=== PATIENT | female | born 1960 | race Caucasian/White ===

== ENCOUNTER 2020-07-07 08:52 | Emergency (ER) | payer BC, SELFPAY ==
[2020-07-07 09:04] VITALS: BP 111/49; PULSE 61; RESP 14; TEMP 36.6; O2SAT 100
--- NOTE | 2020-07-07 10:06 | ED.EYEPROB ---
HPI - Eye Problem General Chief complaint: Eye Problems Stated complaint: Pain in left Eye Time Seen by Provider: 07/07/20 09:55 Source: patient and RN notes reviewed Mode of arrival: ambulatory Limitations: no limitations History of Present Illness HPI Narrative: Patient presents today complaining of a foreign body sensation and burning to the left eye since she woke up this morning. Patient was doing yard work yesterday, but does not know a specific moment that could be the culprit to her symptoms. She did try to flush out her eye and put in some redness eyedrops this morning without relief. She has had a previous corneal abrasion in the left eye and states this feels similar. She does not wear glasses or contacts. Denies any purulent discharge. She does complain of photophobia. MD chief complaint: eye redness and foreign body Related Data Home Medications Medication Instructions Recorded Confirmed albuterol sulfate 90 mcg INHALATION USEASDIRECTD PRN 07/07/20 07/07/20 alprazolam 0.5 mg PO TID 07/07/20 07/07/20 bupropion HCl 300 mg PO DAILY 07/07/20 07/07/20 docusate sodium 100 mg PO DAILY 07/07/20 07/07/20 gabapentin 400 mg PO QID 07/07/20 07/07/20 hydrocodone-acetaminophen 10 tablet PO TID 07/07/20 07/07/20 levothyroxine 25 mcg PO DAILY 07/07/20 07/07/20 orphenadrine citrate 100 mg PO BID 07/07/20 07/07/20 sennosides [senna] 8.6 mg PO DAILY 07/07/20 07/07/20 sertraline 50 mg PO DAILY 07/07/20 07/07/20 Allergies Allergy/AdvReac Type Severity Reaction Status Date / Time cephalexin [From Keflex] Allergy Unknown Verified 07/07/20 09:46 iohexol Allergy Unknown Verified 07/07/20 09:46 [From contrast - CT, X-RAY] Penicillins Allergy Unknown Verified 07/07/20 09:46 Review of Systems Review of Systems: Narrative: CONSTITUTIONAL: Denies body aches, fever, chills, or sweats. EYES: Denies visual changes, or discharge. + Redness, tearing, photophobia, burning, foreign body sensation to the left eye ENT: Denies rhinorrhea, congestion, sore throat, or otalgia. CARDIOVASCULAR: Denies chest pain, palpitations, or edema. RESPIRATORY: Denies cough or dyspnea. GASTROINTESTINAL: Denies abdominal pain, nausea, vomiting, or diarrhea. GENITOURINARY: Denies dysuria or hematuria. SKIN: Denies rash, itching, or wounds. MUSCULOSKELETAL: Denies back pain, joint pain, or myalgia. NEUROLOGIC: Denies headache, numbness, tingling, or weakness. PSYCH: Denies depression or anxiety. [facility] Past Medical History Medical History (Updated 07/07/20 @ 10:18 by Alina Rodriguez, SALES DEVELOPMENT CONSULTANT, ) Anxiety Depression Fibromyalgia Sciatica Spinal stenosis Social History Social History Gender identity (if verbalized by the patient): Female Comments At time of signature, I have reviewed and agree with nursing past medical, surgical, social and family history unless otherwise noted. Please see nursing chart for further information. There is no relevant family history pertinent to the presenting complaint Exam Narrative: Exam Narrative: GENERAL: Well-appearing, well-nourished, and in no acute distress. HEAD: Normocephalic, atraumatic. EYES: EOMI. PERRL. Right eye normal. Injected conjunctiva on the left. Tearing on the left. See procedure note. ENT: Mucous membranes pink and moist. NECK: Normal AROM. CHEST: No respiratory distress. EXTREMITIES: Normal range of motion. No edema. SKIN: Warm, dry, no rash. Capillary refill normal. Normal skin turgor. NEURO: No focal deficits. Alert and oriented x3. Gait steady. PSYCH: Normal affect. No signs of depression or anxiety. Course Vital Signs Vital signs: Vital Signs Temperature 98 F 07/07/20 09:04 Pulse Rate 61 07/07/20 09:04 Respiratory Rate 14 07/07/20 09:04 Blood Pressure 111/49 L 07/07/20 09:04 Pulse Oximetry 100 07/07/20 09:04 Temperature 98 F 07/07/20 09:04 Pulse Rate 61 07/07/20 09:04 Respiratory Rate 14 07/07/20 09:04 Blood Pressure 111/49
== END 2020-07-07 10:18 | disposition home or self-care (01) ==
PROVIDERS: Emergency Provider Nurse Practitioner; PCP Family Medicine
DX: S05.02XA Injury of conjunctiva and corneal abrasion without foreign body, left eye, initial encounter (principal); X58.XXXA Exposure to other specified factors, initial encounter; F41.9 Anxiety disorder, unspecified; F32.9 Major depressive disorder, single episode, unspecified; M79.7 Fibromyalgia; M48.00 Spinal stenosis, site unspecified
CPT/HCPCS: 99213; A9270; G0463

== ENCOUNTER 2024-07-19 14:05 | Emergency (ER) | payer BC, SELFPAY ==
--- NOTE | ~2024-07-19 | XR_ITS ---
XR foot LT min 3V Ordering provider: Albertina Diop APRN History: . fell off treadmill . Comparison: None. FINDINGS: BONES: Oblique fracture in the midshaft of the left fifth metatarsal bone. Postoperative changes seen in the first and second toes. JOINT SPACES: Narrowing of the proximal and distal interphalangeal joints. No tarsal coalition. SOFT TISSUES: Normal. IMPRESSION: Fracture in the midshaft of the fifth metatarsal bone. Polyarticular osteoarthritic changes. Reviewed, dictated and finalized at location A.
[2024-07-19 14:15] VITALS: BP 117/59; PULSE 90; RESP 20; TEMP 36.8; O2SAT 98
--- NOTE | 2024-07-19 14:22 | ED.LOWEXIN ---
HPI - Extremity Injury (Lower) General Chief Complaint: Extremity Injury, Lower Stated Complaint: L Foot Injury Source: patient Mode of arrival: ambulatory Limitations: no limitations History of Present Illness HPI Narrative: 64 y/o female presented for c/o left foot pain bruising, and swelling x2 days. Says she fell off the treadmill yesterday when she was distracted looking at her phone. She then resumed her walk of an additional 2 miles. Took hydrocodone. Has been using a walking boot. Related Data Home Medications ?Medication ?Instructions ?Recorded ?Confirmed ?Last Taken ?Type gabapentin 400 mg capsule 400 mg PO QID 07/07/20 07/07/20 Unknown History hydrocodone 10 mg-acetaminophen 10 tablet PO TID 07/07/20 07/07/20 Unknown History 325 mg tablet levothyroxine 25 mcg tablet 25 mcg PO DAILY 07/07/20 07/07/20 Unknown History sertraline 50 mg tablet 50 mg PO DAILY 07/07/20 07/19/24 Unknown History rosuvastatin 20 mg tablet mg 07/19/24 Unknown History sertraline 100 mg tablet mg 07/19/24 Unknown History Allergies Allergy/AdvReac Type Severity Reaction Status Date / Time cephalexin (From Keflex) Allergy Unknown Verified 07/19/24 14:29 iohexol (From contrast - CT, Allergy Unknown Verified 07/19/24 14:29 X-RAY) Penicillins Allergy Unknown Verified 07/19/24 14:29 Review of Systems Review of Systems: CONSTITUTIONAL: Denies body aches, fever, chills EYES: Denies visual changes ENT: Denies rhinorrhea, congestion CARDIOVASCULAR: Denies chest pain, palpitations, or edema. RESPIRATORY: Denies cough or dyspnea. SKIN: Denies rash, itching, or wounds. MUSCULOSKELETAL: reports left foot pain NEUROLOGIC: Denies headache, numbness, tingling, or weakness. All systems reviewed & are unremarkable except as noted in HPI and below PMFSH Past Medical History Medical History (Updated 07/19/24 @ 15:15 by Albertina Diop APRN) Spinal stenosis Anxiety Depression Sciatica Fibromyalgia Social History Social History Gender identity (if verbalized by the patient): Female Comments At time of signature, I have reviewed and agree with nursing past medical, surgical, social and family history unless otherwise noted. Please see nursing chart for further information. There is no relevant family history pertinent to the presenting complaint Exam Narrative: GENERAL: Well-appearing CHEST: Speaks in full sentences. No respiratory distress. HEART: Regular rate and rhythm. Normal and equal peripheral pulses. EXTREMITIES: Left foot has normal strength and sensation. Slightly decreased range of motion of toes. Swelling and tenderness with palpation throughout the foot and ankle. ecchymosis to dorsal foot, MTPs and mid plantar foot. No open wounds. pulse palpable and equal bilaterally, skin warm, dry, pink. Capillary refill less than 3 seconds. SKIN: Warm, dry, no rash. NEURO: Alert and oriented x3. PSYCH: Normal mood and affect Course Course Emergency Course: Patient is aware of diagnosis, understands and agrees to treatment plan. Anticipatory guidance given. Patient agrees to follow-up as directed and is aware of reasons to seek care at the emergency department. Portions of this record may have been created with voice recognition software Level of Care: Express Care Visit Vital Signs Vital signs: Reviewed MDM - Extremity Injury (Lower) MDM Narrative Medical decision making narrative: Discussed physical exam findings and xray.Pt has walking boot from home and reapplied in clinic. Pt has hydrocodone. Advised supportive measures and signs/symptoms to go to the ER. Pt is appropriate for outpt treatment and f/u with ortho. Differential Diagnosis Differential diagnosis: Likely other (Plantar fasciitis, heel spur, foot strain/sprain, metatarsal fracture, metatarsalgia, blanca's neuroma) Imaging Data Radiologist's impression: Patient: Lisa Winkler : 1960 MR#: [id number] Age: 64 Acct:[id number] Loc: [facility] ADM Date: 07/19/24Attending Dr: OXANA foot LT min 3V Ordering provider: Albertina Diop APRN History: . fell off treadmill . Comparison: None. FINDINGS: BONES: Oblique fracture in the midshaft of the left fifth metatarsal bone. Postoperative changes seen in the first and second toes. JOINT SPACES: Narrowing of the proximal and distal interphalangeal joints. No tarsal coalition. SOFT TISSUES: Normal. IMPRESSION: Fracture in the midshaft of the fifth metatarsal bone. Polyarticular osteoarthritic changes. Discharge Plan Discharge Clinical Impression: Foot fracture, left Patient Disposition: Home Condition: Stable Instructions: Foot Fracture in Adults (ED) Additional Instructions: Continue to wear the walking boot at all times while walking. Rest, limit walking ice and elevate the left foot as often as possible. Motrin 600mg every 8 hours, as needed, for pain (take with food). Tylenol 1000mg every 8 hours (totalling 3000mg of acetaminophen from all sources). Go to the ER immediately for increased pain, tingling/numbness, swelling, redness, etc Follow up with Orthopedic Surgery in 1 day for further evaluation - please call today for an appointment. Patient Language: Croatian Prescriptions: No Action gabapentin 400 mg capsule 400 mg PO QID levothyroxine 25 mcg tablet 25 mcg PO DAILY hydrocodone-acetaminophen 10-325 mg tablet 10 tablet PO TID sertraline 50 mg tablet 50 mg PO DAILY sertraline 100 mg tablet rosuvastatin 20 mg tablet Follow-up/Referrals: Chuy Dumont MD [Physician] - UNKNOWN,DOCTOR [Primary Care Provider] - Stand Alone Forms: Work/School Release IP
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
--- OUTSIDE RECORDS SUMMARY | 2024-07-19 15:23 | XMS_ITS | Data Portability ---
[facility] [address] [place] [address] Care Team Providers Care Title I Teacher Name Role Phone BIENVENIDO AUGUSTIN Mold Changer Unavailable Assessment No assessment recorded. Plan of Treatment Reminders Order Date Submit Date Provider Last Modified By Organization Details Last Modified Time Details Appointments PROC 30 2024 01:30P M Bienvenido Augustin MD Not available Not available Not available Lab bacteria l vaginosi s panel, vaginal 2024 025 [facility], [address] [place] [address], [id number], 07/15/2024 07:12:45 aundrea parapsil osis DNA, genital 2024 025 [facility], [address] [place] [address], [facility] [address], [address], 07/15/2024 07:12:44 urinalys is, dipstick 2024 025 [email or web address] In-Office Order, Internal Use Only DO Not Attach Compendium DO Not Attach Compendium, Do Not Delete/merge, [id number] 07/13/2024 16:53:44 cytology report, thin prep, smear or scraping , cervical or vaginal 2024 025 [facility], [address] [facility], [facility] [address], [address], 07/18/2024 16:22:01 cytology report, thin prep, smear or scraping , cervical or vaginal 2023 024 [facility], [address] [facility], [facility] [address], [place], [address], 04/16/2023 06:22:29 bacteria l vaginosi s + vaginiti s panel, vaginal 2019 020 [facility], [address] [facility], [facility], [place], [address], 12/22/2019 07:11:14 urinalys is, dipstick 2019 020 [email or web address] In-Office Order, Internal Use Only DO Not Attach Compendium DO Not Attach Compendium, Do Not Delete/merge, [id number] 12/19/2019 12:13:16 pap, IG + HPV 2019 [facility], [address] [facility], [facility], [place], [address], 12/22/2019 16:15:27 urinalys is, dipstick 2017 018 [email or web address] In-Office Order, Internal Use Only DO Not Attach Compendium DO Not Attach Compendium, Do Not Delete/merge, [id number] 07/08/2017 11:57:34 Referral pelvic floor therapy referral 2023 024 [facility], [address], [place], [address], 07/29/2023 20:17:35 Procedures None recorded . Surgeries None recorded . Imaging MAMMO, screenin g, digital, bilatera l [email or web address] (Scheduling), [address] [facility], [place], [address], 12/19/2019 12:11:55 US, pelvis, transabd ominal + transvag inal 2019 020 [facility] (Scheduling), [address] [facility], [place], [address], 07/06/2019 13:21:45 MAMMO, screenin g, digital, bilatera l 2017 018 [facility] Not available 07/08/2017 15:30:32 US, pelvis, transabd ominal + transvag inal 2017 018 [facility] Not available 07/08/2017 15:30:32 Medication Orders metronid azole 500 mg tablet 2019 020 [id number], [address] [place], [place], [id number], 04/13/2023 09:20:30 Patient TargetsNo targets recorded. Patient Instructions Encounter Date Encounter Id Patient Instructions Last Modified By Organization Details Last Modified Time 12/19/2019 [id number] mammogram: about this test joann Not available 12/19/2019 12:11:54 bacterial vaginosis: care instructions roge Not available 12/19/2019 12:12:42 04/13/2023 [id number] I personally saw and examined the patient with the resident. I agree with the note and plan as documented. Aimee Benson MD. [facility] [email or web address] Not available 04/13/2023 10:02:57 Reason for Referral Pelvic Floor Therapy Referra l for Urinary incontinence Referring Physician: Rosalinda Duron, Rehabilitation Program Coordinator, Encounter Date: 04/13/2023 Results Created Date Observation Date Name Description Value Unit Range Abnormal Flag Note LastModifiedBy Organization Detail LastModifiedTime 12/19/1912/19/2019 urina lysis , dipst ick Leukocytes Negati ve Not Available In-Office Order Internal Use Only DO Not Attach Compendium DO Not Attach Compendium, Do Not Delete/merge, [id number] 12/19/2019 12:10:24 12/19/1912/19/2019 urina lysis , dipst ick Nitrite negati ve Not Available In-Office Order Internal Use Only DO Not Attach Compendium DO Not Attach Compendium, Do Not Delete/merge, [id number] 12/19/2019 12:10:24 12/19/1912/19/2019 urina lysis , dipst ick Urobilinogen .2 Not Available In-Of fice Order Internal Use Only DO Not Attach Compendium DO Not Attach Compendium, Do Not Delete/merge, [id number] 12/19/2019 12:10:24 12/19/19 20 12/19/2019 urina lysis , dipst ick Protein Negati ve Not Available In-Office Order Internal Use Only DO Not Attach Compendium DO Not Attach Compendium, Do Not Delete/merge, [id number] 12/19/2019 12:10:24 12/19/19 20 12/19/2019 urina lysis , dipst ick pH 5.0 Not Available In-Office Order Internal Use Only DO Not Attach Compendium DO Not Attach Compendium, Do Not Delete/merge, [id number] 12/19/2019 12:10:24 12/19/19 20 12/19/2019 urina lysis , dipst ick Blood Negati ve Not Available In-Office Order Internal Use Only DO Not Attach Compendium DO Not Attach Compendium, Do Not Delete/merge, [id number] 12/19/2019 12:10:24 12/19/19 20 12/19/2019 urina lysis , dipst ick Specific Sunflower 1.010 Not Available In-Off ice Order Internal Use Only DO Not Attach Compendium DO Not Attach Compendium, Do Not Delete/merge, [id number] 12/19/2019 12:10:24 12/19/19 20 12/19/2019 urina lysis , dipst ick Ketone Negati ve Not Available In-Office Order Internal Use Only DO Not Attach Compendium DO Not Attach Compendium, Do Not Delete/merge, [id number] 12/19/2019 12:10:24 12/19/19 20 12/19/2019 urina lysis , dipst ick Bilirubin Negati ve Not Available In-Office Order Internal Use Only DO Not Attach Compendium DO Not Attach Compendium, Do Not Delete/merge, [id number] 12/19/2019 12:10:24 12/19/19 20 12/19/2019 urina lysis , dipst ick Glucose Negati ve Not Available In-Office Order Internal Use Only DO Not Attach Compendium DO Not Attach Compendium, Do Not Delete/merge, [id number] 12/19/2019 12:10:24 12/19/19 20 12/19/2019 urina lysis , dipst ick Appearance Slight ly Cloudy Not Available In-Office Order Internal Use Only DO Not Attach Compendium DO Not Attach Compendium, Do Not Delete/merge, 12/19/2019 12:10:24 12/19/19 20 12/19/2019 urina lysis , dipst ick Color Dark Yellow Not Available In-Office Order Internal Use Only DO Not Attach Compendium DO Not Attach Compendium, Do Not Delete/merge, 12/19/2019 12:10:24 07/09/19 18 07/08/2017 urina lysis , dipst ick Leukocytes Negati ve Not Available In-Office Order Internal Use Only DO Not Attach Compendium DO Not Attach Compendium, Do Not Delete/merge, 07/08/2017 11:25:07 07/09/19 18 07/08/2017 urina lysis , dipst ick Nitrite negati ve Not Available In-Office Order Internal Use Only DO Not Attach Compendium DO Not Attach Compendium, Do Not Delete/merge, 07/08/2017 11:25:07 07/09/19 18 07/08/2017 urina lysis , dipst ick Urobilinogen .2 Not Available In-Of fice Order Internal Use Only DO Not Attach Compendium DO Not Attach Compendium, Do Not Delete/merge, 07/08/2017 11:25:07 07/09/19 18 07/08/2017 urina lysis , dipst ick Protein Negati ve Not Available In-Office Order Internal Use Only DO Not Attach Compendium DO Not Attach Compendium, Do Not Delete/merge, 07/08/2017 11:25:07 07/09/19 18 07/08/2017 urina lysis , dipst ick pH 5.5 Not Available In-Office Order Internal Use Only DO Not Attach Compendium DO Not Attach Compendium, Do Not Delete/merge, 07/08/2017 11:25:07 07/09/19 18 07/08/2017 urina lysis , dipst ick Blood Negati ve Not Available In-Office Order Internal Use Only DO Not Attach Compendium DO Not Attach Compendium, Do Not Delete/merge, 07/08/2017 11:25:07 07/09/19 18 07/08/2017 urina lysis , dipst ick Specific Sunflower 1.005 Not Available In-Off ice Order Internal Use Only DO Not Attach Compendium DO Not Attach Compendium, Do Not Delete/merge, 07/08/2017 11:25:07 07/09/19 18 07/08/2017 urina lysis , dipst ick Ketone Negati ve Not Available In-Office Order Internal Use Only DO Not Attach Compendium DO Not Attach Compendium, Do Not Delete/merge, 07/08/2017 11:25:07 07/09/19 18 07/08/2017 urina lysis , dipst ick Bilirubin Negati ve Not Available In-Office Order Internal Use Only DO Not Attach Compendium DO Not Attach Compendium, Do Not Delete/merge, 07/08/2017 11:25:07 07/09/19 18 07/08/2017 urina lysis , dipst ick Glucose Negati ve Not Available In-Office Order Internal Use Only DO Not Attach Compendium DO Not Attach Compendium, Do Not Delete/merge, 07/08/2017 11:25:07 07/09/19 18 07/08/2017 urina lysis , dipst ick Appearance Slight ly Cloudy Not Available In-Office Order Internal Use Only DO Not Attach Compendium DO Not Attach Compendium, Do Not Delete/merge, 07/08/2017 11:25:07 07/09/19 18 07/08/2017 urina lysis , dipst ick Color Yellow Not Available In-Office Order Internal Use Only DO Not Attach Compendium DO Not Attach Compendium, Do Not Delete/merge, 07/08/2017 11:25:07 12/19/19 20 12/21/2019 bacte rial vagin osis + vagin itis panel , vagin al atopobium vaginae Low - 0 score Not Available [facility] ([facility]) [address] [facility], [place], [address], 12/22/2019 07:11:14 12/19/19 20 12/21/2019 bacte rial vagin osis + vagin itis panel , vagin al bvab 2 Low - 0 score Not Available [facility] ([facility]) [address] [place], [address], 12/22/2019 07:11:14 12/19/19 20 12/21/2019 bacte rial vagin osis + vagin itis panel , vagin al megasphaera 1 Low - 0 score Calcu late total score by daria bolden the 3 indiv idual bacte rial vagin osis (BV) marke r score s toget her. Total score is inter prete d as follo ws: Total score 0-1: Indic ates the absen ce of BV. Total score 2: Indet ermin ate for BV. Addit ional clini otilia data shoul d be evalu ated to estab enrike a diagn osis. Total score 3-6: Indic ates the prese nce of BV. This test was devel oped and its perfo rmanc e azeem cteri stics deter mined by [facility]. It has not been clear ed or appro aurora by the Food and Drug Admin istra tion. The FDA has deter mined that such clear ance or appro marina is not neces abdifatah. Not Available [facility] ([facility]) [address] [facility], [place], [address], 12/22/2019 07:11:14 12/19/19 20 12/21/2019 bacte rial vagin osis + vagin itis panel , vagin al aundrea albicans, DAMIÁN Negati ve negati ve Not Available [facility] ([facility]) [address] [place], [address], 12/22/2019 07:11:14 12/19/19 20 12/21/2019 bacte rial vagin osis + vagin itis panel , vagin al aundrea glabrata, DAMIÁN Negati ve negati ve Not Available [facility] ([facility]) [address] [place], [address], 12/22/2019 07:11:14 12/19/19 20 12/21/2019 bacte rial vagin osis + vagin itis panel , vagin al trich vag by DAMIÁN Negati ve negati ve Not Available [facility] ([facility]) [address] [facility], [place], [address], 12/22/2019 07:11:14 12/19/19 20 12/21/2019 bacte rial vagin osis + vagin itis panel , vagin al chlamydia trachomatis, DAMIÁN Negati ve negati ve Not Available [facility] ([facility]) [address] [facility], [place], [address], 12/22/2019 07:11:14 12/19/19 20 12/21/2019 bacte rial vagin osis + vagin itis panel , vagin al neisseria gonorrhoeae, DAMIÁN Negati ve negati ve Not Available [facility] ([facility]) [address] [facility], [place], [address], 12/22/2019 07:11:14 12/19/19 20 12/21/2019 pap, IG + HPV HPV aptima Negati ve negati ve This nucle ic acid ampli ficat ion test detec ts fourt een high- risk HPV types (16,1 8,31, 33,35 ,39,4 5,51, 52,56 ,58,5 9,66, 68) witho ut diffe renti ation . Not Available [facility] ([facility]) [address] [facility], [place], [address], 12/22/2019 16:15:27 12/19/1912/22/2019 pap, IG + HPV diagnosis: Commen t NEGAT DARRIN FOR INTRA EPITH ELIAL LESIO N OR MALIG MUSA . CELLU LAR EARL ES ASSOC IATED WITH ATROP HY ARE PRESE NT. Not Available [facility] ([facility]) [address] [facility], [place], [address], 12/22/2019 16:15:27 12/19/19 20 12/22/2019 pap, IG + HPV specimen adequacy: Lucia ochoa Satis facto ry for evalu ation . Endoc ervic al and/o r squam ous metap lasti c cells (endo cervi otilia compo nent) are prese nt. Not Available [facility] ([facility]) [address] [place], [address], 12/22/2019 16:15:27 12/19/19 20 12/22/2019 pap, IG + HPV clinician provided ICD10: Lucia ochoa Z01.4 19 Not Available [facility] ([facility]) [address] [place], [address], 12/22/2019 16:15:27 12/19/19 20 12/22/2019 pap, IG + HPV performed by: Gilda Rossi (ASCP ) Not Available [facility] ([facility]) [address] [facility], [place], [address], 12/22/2019 16:15:27 12/19/19 20 12/22/2019 pap, IG + HPV . . Not Available [facility] ([facility]) [address] [facility], [place], [address], 12/22/2019 16:15:27 12/19/19 20 12/22/2019 pap, IG + HPV note: Lucia ochoa The Pap smear is a scree demian test desig fede to aid in the detec tion of jaky ligna nt and malig nant condi tions of the uteri ne cervi x. It is not a diagn ostic proce dure and shoul d not be used as the sole means of detec ting cervi otilia cance r. Both false -posi tive and false -nega tive repor ts do occur . Not Available [facility] ([facility]) [address] [place], [address], 12/22/2019 16:15:27 1112/22/2019 pap, IG + HPV test methodology: Lucia ochoa This liqui d based ThinP rep(R ) pap test was cooper mistry with the use of an image guide ronit dumont Not Available [facility] ([facility]) [address] [facility], [place], [address], 12/22/2019 16:15:27 04/13/19 24 04/15/2023 IGP, APTIM A HPV, RFX 16/18 ,45 diagnosis: Lucia BROWN DARRIN FOR INTRA EPITH ELIAL LESIO N OR KANWAL VIGIL . Not Available [facility] ([facility]) [address] [facility], [place], [address], 04/16/2023 06:22:29 04/13/19 24 04/15/2023 IGP, APTIM A HPV, RFX 16/18 ,45 specimen adequacy: Lucia ochoa Satis facto ry for evalu ation . Endoc ervic al and/o r squam ous metap lasti c cells (endo cervi otilia compo nent) are prese nt. Not Available [facility] ([facility]) [address] [facility], [place], [address], 04/16/2023 06:22:29 04/13/19 24 04/15/2023 IGP, APTIM A HPV, RFX 16/18 ,45 clinician provided ICD10: Lucia ochoa Z12.4 Not Available [facility] ([facility]) [address] [facility], [place], [address], 04/16/2023 06:22:29 04/13/19 24 04/15/2023 IGP, APTIM A HPV, RFX 16/18 ,45 performed by: Gilda Villaseñor (ASCP ) Not Available [facility] ([facility]) [address] [place], [address], 04/16/2023 06:22:29 04/13/19 24 04/15/2023 IGP, APTIM A HPV, RFX 16/18 ,45 . . Not Available [facility] ([facility]) [address] [place], [address], 04/16/2023 06:22:29 04/13/19 24 04/15/2023 IGP, APTIM A HPV, RFX 16/18 ,45 note: Commen t The Pap smear is a scree demian test brandee mistry to aid in the detec tion of jaky ligna nt and malig nant condi tions of the uteri ne cervi x. It is not a diagn ostic proce dure and shoul d not be used as the sole means of detec ting cervi otilia cance r. Both false -posi tive and false -nega tive repor ts do occur . Not Available [facility] ([facility]) [address] [place], [address], 04/16/2023 06:22:29 04/13/19 24 04/15/2023 IGP, APTIM A HPV, RFX 16/18 ,45 test methodology: Commen t This liqui d based ThinP rep(R ) pap test was scree fede with the use of an image guide ronit mcghee. Not Available [facility] ([facility]) [address] [place], [address], 04/16/2023 06:22:29 04/13/19 24 04/15/2023 IGP, APTIM A HPV, RFX 16/18 ,45 HPV aptima Positi ve negati ve abnormal This nucle ic acid ampli ficat ion test detec ts fourt een high- risk HPV types (16,1 8,31, 33,35 ,39,4 5,51, 52,56 ,58,5 9,66, 68) witho ut diffe renti ation . Not Available [facility] ([facility]) [address] [place], [address], 04/16/2023 06:22:29 04/13/19 24 04/15/2023 IGP, APTIM A HPV, RFX 16/18 ,45 HPV genotype reflex Commen t Crite siria met, see HPV Genot ype resul ts. Not Available [facility] ([facility]) [address] [facility], [place], [address], 04/16/2023 06:22:29 04/13/19 24 04/16/2023 HPV GENOT YPES 16/18 ,45 HPV genotype 16 Negati ve negati ve Not Available [facility] ([facility]) [address] [facility], [place], [address], 04/16/2023 06:22:30 04/13/19 24 04/16/2023 HPV GENOT YPES 16/18 ,45 HPV genotype 18,45 Negati ve negati ve Not Available [facility] ([facility]) [address] [facility], [place], [address], 04/16/2023 06:22:30 07/02/19 25 07/01/2024 25-Hy droxy vitam in D3+25 -Hydr oxyvi tamin D2 [Mass /volu me] in Serum or Plasm a 25-hydroxyvi tamin D3+25-hydrox yvitamin D2 [mass/volume ] in serum or plasma 22.1 NG/mL Not Available Not Available 10:30:20 07/02/19 25 07/01/2024 25-Hy droxy vitam in D3+25 -Hydr oxyvi tamin D2 [Mass /volu me] in Serum or Plasm a Unknown Analyte Publis hed refere nce ranges for Vitami n D vary depend ing on time and place and method of testin g, and on patien t's age, sex, ethnic ity and levels of other measur ed analyt es such as parath ormone , calciu m and phosph orus. The result should be evalua edda in conjun ction with clinic al findin gs and suspic ions. [facility] Guidel mary: Status Vitami n D levels (ng/mL ) Defici ent <=20 At risk of inadeq uacy 21-29 Suffic ient 30-100 Center s of Diseas e Contro l and Preven tion Guidel mary: Status Vitami n D levels (ng/mL ) Defici ent <13 At risk of inadeq uacy 13-19 Suffic ient 20-50 Possib ly harmfu l >50 Refere nces: [facility], 2009 Dietar y refere nce intake s for calciu m and vitami n D. Shirley weston [place]: [facility] ies Press. Hamlet Mcghee, Savage diop N, Vinnie ff-Slade ashutosh BURTON, et al., Evalua tion, treatm ent, and preven tion of Vitami n D defici ency: an Endocr inolog y Clinic al Practi ce Guidel ine. JCEM 2011 96: 7 1911-1 [phone]. Gary Chavez, Elisa stone C, Ibrahima D, et al., Vitami n D Status : [facility] , 2000-02 006, [facility] data brief, no. 59, Bradley robertson MD: [facility] Stat[facility] tics. 2010. Not Available Not Available 10:30:20 07/02/1907/01/2024 HIV 1+2 Ab+HI V1 p24 Ag [Pres ence] in Serum or Plasm a by Immun oassa y HIV 1+2 Ab+HIV1 P24 Ag [units/volum e] in serum or plasma by immunoassay NON DETECT ED text: non detect ed Not Available Not Available 07/12/2024 10:30:20 07/02/1907/01/2024 HIV 1+2 Ab+HI V1 p24 Ag [Pres ence] in Serum or Plasm a by Immun oassa y interpretati on and review of laboratory results Normal Not Available Not Available 04/2024 10:30:20 07/02/19 25 07/03/2024 Mycob acter ium tuber culos is stimu lated gamma inter feron panel - Blood gamma interferon background [units/volum e] in blood by immunoassay 0.01 text: <8.01 IU/mL Not Available Not Available 07/12/2024 10:30:20 07/02/19 25 07/03/2024 Mycob acter ium tuber reneeos is stimu lated gamma inter feron panel - Blood mycobacteriu m tuberculosis stimulated gamma interferon release by cd4+ T-cells [units/volum e] in blood 0.02 text: <0.35 IU/mL Not Available Not Available 07/12/2024 10:30:20 07/02/19 25 07/03/2024 Mycob acter ium tuber culos is stimu lated gamma inter feron panel - Blood mycobacteriu m tuberculosis stimulated gamma interferon release by cd4+ and cd8+ T-cells [units/volum e] in blood 0.01 text: <0.35 IU/mL Not Available Not Available 07/12/2024 10:30:20 07/02/19 25 07/03/2024 Mycob acter ium tuber culos is stimu lated gamma inter feron panel - Blood mycobacteriu m tuberculosis tuberculin stimulated gamma interferon/m itogen stimulated gamma interferon [units/volum e] in control blood 9.99 text: >0.49 IU/mL Not Available Not Available 07/12/2024 10:30:20 07/02/19 25 07/03/2024 Mycob acter ium tuber reneeos is stimu lated gamma inter feron panel - Blood mycobacteriu m tuberculosis stimulated gamma interferon [interpretat ion] in blood qualitative NEGATI VE text: negati ve, negati ve (TB antige n respon se less than 25% of design engineering intern al negati ve contro l value) No immun e respo nse to Mycob acter ium tuber reneeos is antig ens was noted . M. lainey duranos is infec tion unlik brian. Not Available Not Available 07/12/2024 10:30:20 07/02/19 25 07/03/2024 Mycob acter ium lainey duranos is stimu lated gamma inter feron panel - Blood Unknown Analyte A POSITI VE QUANTI FERON- TB GOLD PLUS RESULT SHOULD NOT BE THE SOLE OR DEFINI TIVE BASIS FOR DETERM INING INFECT ION WITH M.TUBE RCULOS IS. Diagno sing or exclud ing tuberc ulosis diseas e, and assess ing the probab ility of LTBI, requir es a combin ation of epidem iologi otilia, histor ical, medica l and diagno stic findin gs (e.g., acid fast bacill i (AFB) smear and cultur e, chest xray) that should be taken into accoun t when interp reting QFT-Pl us result s. Furthe rmore, the magnit ude of the measur ed gamma interf alex level cannot be correl ated to stage or degree of infect ion, level of immune respon sivene ss, or likeli nunn for progre ssion to active diseas e. The Nil contro l adjust s for backgr ound (e.g., elevat ed levels of circul ating gamma interf alex or presen ce of hetero phile antibo dies). The Mitoge n contro l serves as an design engineering intern al positi ve contro l and verifi es each specim en tested can produc e a gamma interf alex respon se. Low mitoge n may occur with insuff icient lympho cytes, reduce d lympho cyte activi ty due to improp er specim en handli ng, fillin g/mixi ng of the mitoge n tube, or inabil ity of the patien t's lympho cytes to genera te gamma interf alex. Infect ion with other Mycoba cteria , includ ing M. [place] ii, M. gus i, and M. rae m, may cause false positi ve result s. A negati ve Quanti FERON- TB Gold Plus result does not preclu de the possib ility of M. tuberc ulosis infect ion or tuberc ulosis diseas e: false negati ve result s can be due to incorr ect blood sample collec tion/ improp er handli ng of the specim en, stage of infect ion (e.g., specim en obtain ed prior to the develo pment of cellul ar immune respon se), co-mor bid condit ions which affect immune functi on, or other indivi dual immuno logica l factor s. The minimu m number of lympho cytes requir ed for a reliab le test has not been establ ished and may also be variab le. Diagno stic testin g for Mycoba cteriu m tuberc ulosis using Interf alex Gamma Releas e Assays should follow applic able publis hed guidel mary, includ ing when testin g in popula tions such as childr en, pregna nt women, and HIV-in fected or otherw ise immuno compro mised indivi duals. https: //www. cdc.go v/tb/p ublica tions/ guidel mary/t esting .htm Not Available Not Available 10:30:20 07/02/1907/03/2024 Mycob acter ium tuber culos is stimu lated gamma inter feron panel - Blood interpretati on and review of laboratory results Normal Not Available Not Available 04/2024 10:30:20 07/02/1907/01/2024 CBC W Auto Diffe renti al panel - Blood leukocytes [#/volume] in blood by automated count 6.35 text: 4.00 - 12.00 10(3)/ mcL Not Available Not Available 07/12/2024 10:30:20 07/02/1907/01/2024 CBC W Auto Diffe renti al panel - Blood erythrocytes [#/volume] in blood by automated count 4.92 text: 3.80 - 5.30 10(6)/ mcL Not Available Not Available 07/12/2024 10:30:20 07/02/1907/01/2024 CBC W Auto Diffe renti al panel - Blood hemoglobin [mass/volume ] in blood 14.3 g/dL low: 12g/dL high: 15.8g/ dL Not Available Not Available 07/12/2024 10:30:20 07/02/1907/01/2024 CBC W Auto Diffe renti al panel - Blood hematocrit [volume fraction] of blood by automated count 44.6 % low: 36%hig h: 47% Not Available Not Available 07/12/2024 10:30:20 07/02/1907/01/2024 CBC W Auto Diffe renti al panel - Blood MCV [entitic mean volume] in red blood cells by automated count 90.7 fL low: 82fLhi gh: 96fL Not Available Not Available 07/12/2024 10:30:20 07/02/19 25 07/01/2024 CBC W Auto Diffe renti al panel - Blood MCH [entitic mass] by automated count 29.1 pg low: 26pghi gh: 34pg Not Available Not Available 07/12/2024 10:30:20 07/02/19 25 07/01/2024 CBC W Auto Diffe renti al panel - Blood MCHC [entitic mass/volume] in red blood cells by automated count 32.1 g/dL low: 31g/dL high: 36g/dL Not Available Not Available 07/12/2024 10:30:20 07/02/19 25 07/01/2024 CBC W Auto Diffe renti al panel - Blood platelets [#/volume] in blood 319 text: 140 - 440 10(3)/ mcL Not Available Not Available 07/12/2024 10:30:20 07/02/19 25 07/01/2024 CBC W Auto Diffe renti al panel - Blood erythrocyte [distwidth] in red blood cells by automated count 13.8 % low: 11.8%h igh: 15.5% Not Available Not Available 07/12/2024 10:30:20 07/02/19 25 07/01/2024 CBC W Auto Diffe renti al panel - Blood platelet [entitic mean volume] in blood by automated count 9.6 fL low: 9.7fLh igh: 12.4fL low Not Available Not Available 07/12/2024 10:30:20 07/02/19 25 07/01/2024 CBC W Auto Diffe renti al panel - Blood neutrophils/ leukocytes in blood by automated count 57 % low: 47%hig h: 73% Not Available Not Available 07/12/2024 10:30:20 07/02/19 25 07/01/2024 CBC W Auto Diffe renti al panel - Blood lymphocytes/ leukocytes in blood by automated count 31.2 % low: 18%hig h: 42% Not Available Not Available 07/12/2024 10:30:20 07/02/19 25 07/01/2024 CBC W Auto Diffe renti al panel - Blood monocytes/le ukocytes in blood by automated count 7.1 % low: 4%high : 12% Not Available Not Available 07/12/2024 10:30:20 07/02/19 25 07/01/2024 CBC W Auto Diffe renti al panel - Blood eosinophils/ leukocytes in blood by automated count 3.6 % low: 0%high : 5% Not Available Not Available 07/12/2024 10:30:20 07/02/1907/01/2024 CBC W Auto Diffe renti al panel - Blood basophils/le ukocytes in blood by automated count 1.1 % low: 0%high : 1% high Not Available Not Available 07/12/2024 10:30:20 07/02/19 25 07/01/2024 CBC W Auto Diffe renti al panel - Blood neutrophils [#/volume] in blood by automated count 3.62 text: 1.60 - 7.70 10(3)/ mcL Not Available Not Available 07/12/2024 10:30:20 07/02/1907/01/2024 CBC W Auto Diffe renti al panel - Blood lymphocytes [#/volume] in blood by automated count 1.98 text: 1.30 - 3.20 10(3)/ mcL Not Available Not Available 07/12/2024 10:30:20 07/02/19 25 07/01/2024 CBC W Auto Diffe renti al panel - Blood monocytes [#/volume] in blood by automated count 0.45 text: 0.20 - 1.00 10(3)/ mcL Not Available Not Available 07/12/2024 10:30:20 07/02/19 25 07/01/2024 CBC W Auto Diffe renti al panel - Blood eosinophils [#/volume] in blood by automated count 0.23 text: 0.00 - 0.40 10(3)/ mcL Not Available Not Available 07/12/2024 10:30:20 07/02/19 25 07/01/2024 CBC W Auto Diffe renti al panel - Blood basophils [#/volume] in blood by automated count 0.07 text: 0.00 - 0.10 10(3)/ mcL Not Available Not Available 07/12/2024 10:30:20 07/02/19 25 07/01/2024 CBC W Auto Diffe renti al panel - Blood nucleated erythrocytes /leukocytes [ratio] in blood 0 Not Available Not Available 04/2024 10:30:20 07/02/19 25 07/01/2024 CBC W Auto Diffe jhon al panel - Blood interpretati on and review of laboratory results Abnorm al Not Available Not Available 10:30:20 07/02/19 25 07/01/2024 Cobal briceño (Melody min B12) [Mass /volu me] in Serum or Plasm a cobalamin (vitamin B12) [mass/volume ] in serum or plasma 853 pg/mL low: 213pg/ mLhigh : 816pg/ mL high Not Available Not Available 07/12/2024 10:30:20 07/02/19 25 07/01/2024 Cobal briceño (Melody min B12) [Mass /volu me] in Serum or Plasm a interpretati on and review of laboratory results Abnorm al Not Available Not Available 10:30:20 07/02/19 25 07/01/2024 Thyro xine (T4) free [Mass /volu me] in Serum or Plasm a thyroxine (T4) free [mass/volume ] in serum or plasma 0.7 NG/dL low: 0.7NG/ dLhigh : 1.9NG/ dL Not Available Not Available 07/12/2024 10:30:20 07/02/19 25 07/01/2024 Thyro xine (T4) free [Mass /volu me] in Serum or Plasm a interpretati on and review of laboratory results Normal Not Available Not Available 04/2024 10:30:20 07/02/19 25 07/01/2024 Thyro tropi n [Unit s/vol ume] in Serum or Plasm a thyrotropin [units/volum e] in serum or plasma 2.21 text: 0.300 - 5.000 mIU/L Not Available Not Available 07/12/2024 10:30:20 07/02/19 25 07/01/2024 Thyro tropi n [Unit s/vol ume] in Serum or Plasm a interpretati on and review of laboratory results Normal Not Available Not Available 04/2024 10:30:20 07/02/19 25 07/01/2024 Lipid 1996 panel - Serum or Plasm a cholesterol [mass/volume ] in serum or plasma 378 mg/dL high: 200mg/ dL high Not Available Not Available 07/12/2024 10:30:19 07/02/1907/01/2024 Lipid 1996 panel - Serum or Plasm a triglyceride [mass/volume ] in serum or plasma 225 mg/dL high: 150mg/ dL high Not Available Not Available 07/12/2024 10:30:19 07/02/19 25 07/01/2024 Lipid 1996 panel - Serum or Plasm a cholesterol in HDL [mass/volume ] in serum or plasma 80 mg/dL low: 40mg/d L Not Available Not Available 07/12/2024 10:30:19 07/02/1907/01/2024 Lipid 1995 panel - Serum or Plasm a cholesterol in LDL [mass/volume ] in serum or plasma 253 mg/dL high: 130mg/ dL high Not Available Not Available 07/12/2024 10:30:19 07/02/1907/01/2024 Lipid 1996 panel - Serum or Plasm a cholesterol in VLDL [mass/volume ] in serum or plasma 45 mg/dL low: 10mg/d Lhigh: 50mg/d L Not Available Not Available 07/12/2024 10:30:19 07/02/1907/01/2024 Lipid 1996 panel - Serum or Plasm a cholesterol. total/choles terol in HDL [mass ratio] in serum or plasma 4.7 low: 0high: 4.4 high Not Available Not Available 07/12/2024 10:30:19 07/02/1907/01/2024 Lipid 1996 panel - Serum or Plasm a cholesterol non HDL [mass/volume ] in serum or plasma 298 mg/dL high: 130mg/ dL high Not Available Not Available 07/12/2024 10:30:19 07/02/1907/01/2024 Lipid 1996 panel - Serum or Plasm a IS the patient required to BE fasting? No Not Available Not Available 07/12/2024 10:30:19 07/02/19 25 07/01/2024 Lipid 1995 panel - Serum or Plasm a interpretati on and review of laboratory results Abnorm al Not Available Not Available 10:30:19 07/02/19 25 07/01/2024 Hepat itis C virus Ab Signa l/Cut off in Serum or Plasm a by Immun oassa y hepatitis C virus Ab signal/cutof f in serum or plasma by immunoassay 0.14 text: <1 S/co Signa l/Cut off ratio < 0.79 is Nonde tecte d Signa l/Cut off ratio 0.80- 0.99 is Grayz one Signa l/Cut off ratio > 0.99 is Detec edda Suppl ement al assay s are recom magan d if signa l/cut off ratio is >/=1. 00. Signa l/cut off ratio resul t >/= 5.00 is 97% predi ctive of posit ivity for recom binan t immun oblot assay (RIBA ) and will be repor edda to the [facility] as requi red. Not Available Not Available 07/12/2024 10:30:07/02/1907/01/2024 Hepat itis C virus Ab Signa l/Cut off in Serum or Plasm a by Immun oassa y interpretati on and review of laboratory results Normal Not Available Not Available 04/2024 10:30:19 07/02/1907/01/2024 Folat e [Mass /volu me] in Serum or Plasm a folate [mass/volume ] in serum or plasma 7.3 NG/mL low: 7NG/mL high: 31.4NG /mL Not Available Not Available 07/12/2024 10:30:19 07/02/1907/01/2024 Folat e [Mass /volu me] in Serum or Plasm a thermoactino myces vulgaris IgG Ab [mass/volume ] in serum No Not Available Not Available 0 07/12/2024 10:30:19 07/02/1907/01/2024 Compr ehens darrin metab olic 1999 panel - Serum or Plasm a sodium [moles/volum e] in serum or plasma 140 mmol/ L low: 136mmo l/Lhig h: 145mmo l/L Not Available Not Available 07/12/2024 10:30:19 07/02/19 25 07/01/2024 Compr ehens darrin metab olic 1999 panel - Serum or Plasm a potassium [moles/volum e] in serum or plasma 4.8 mmol/ L low: 3.5mmo l/Lhig h: 5.1mmo l/L Not Available Not Available 07/12/2024 10:30:19 07/02/19 25 07/01/2024 [facility] [id number] darrin metab olic 1999 panel - Serum or Plasm a chloride [moles/volum e] in serum or plasma 103 mmol/ L low: 98mmol /Lhigh : 107mmo l/L Not Available Not Available 07/12/2024 10:30:19 07/02/19 25 07/01/2024 Compr ehens darrin metab olic 1999 panel - Serum or Plasm a carbon dioxide, total [moles/volum e] in serum or plasma 28 mmol/ L low: 22mmol /Lhigh : 30mmol /L Not Available Not Available 07/12/2024 10:30:07/02/19 25 07/01/2024 [facility] [employer] darrin Newsy olic 1999 panel - Serum or Plasm a anion gap in serum or plasma by calculation 13.8 mmol/ L high: 18mmol /L Not Available Not Available 07/12/2024 10:30:07/02/19 25 [facility]2024 [facility] - Serum or Plasm a glucose [mass/volume ] in serum or plasma 88 mg/dL low: 70mg/d Lhigh: 99mg/d L Not Available Not Available 07/12/2024 10:30:07/02/19 25 07/01/2024 [facility] 1999 panel - Serum or Plasm a urea nitrogen [mass/volume ] in serum or plasma 18 mg/dL low: 10mg/d Lhigh: 20mg/d L Not Available Not Available 07/12/2024 10:30:07/02/19 25 07/01/2024 [facility] [employer] darrin Newsy olic 1999 panel - Serum or Plasm a creatinine [mass/volume ] in serum or plasma 0.83 mg/dL low: 0.6mg/ dLhigh : 1mg/dL Not Available Not Available 07/12/2024 10:30:07/02/19 25 07/01/2024 [facility] 360[employer] darrin metab olic 2000 panel - Serum or Plasm a urea nitrogen/cre atinine [mass ratio] in serum or plasma 22 text: 12 - 20 ratio high Not Available Not Available 07/12/2024 10:30:19 07/02/19 25 07/01/2024 [facility] 1999 panel - Serum or Plasm a protein [mass/volume ] in serum or plasma 8.8 g/dL low: 6g/dLh igh: 8g/dL high Not Available Not Available 07/12/2024 10:30:07/02/19 25 07/01/2024 [facility] [facility] 1999 panel - Serum or Plasm a albumin [mass/volume ] in serum or plasma 4.9 g/dL low: 3.5g/d Lhigh: 5g/dL Not Available Not Available 07/12/2024 10:30:07/02/19 25 07/01/2024 [facility] 1999 panel - Serum or Plasm a albumin/glob ulin [mass ratio] in serum or plasma 1.3 low: 1high: 2.2 Not Available Not Available 07/12/2024 10:30:07/02/19 25 07/01/2024 [facility] 1999 panel - Serum or Plasm a calcium [mass/volume ] in serum or plasma 10.5 mg/dL low: 8.7mg/ dLhigh : 10.5mg /dL Not Available Not Available 07/12/2024 10:30:07/02/1907/01/[address] [facility] panel - Serum or Plasm a bilirubin.to fran [mass/volume ] in serum or plasma 0.4 mg/dL low: 0.2mg/ dLhigh : 1.2mg/ dL Not Available Not Available 07/12/2024 10:30:07/02/1907/01/2024 [facility] 1999 panel - Serum or Plasm a aspartate aminotransfe rase [enzymatic activity/vol ume] in serum or plasma 32 U/L high: 43U/L Not Available Not Available 07/12/2024 10:30:07/02/1907/01/2024 [facility] 1999 panel - Serum or Plasm a alanine aminotransfe rase [enzymatic activity/vol ume] in serum or plasma 37 U/L high: 56U/L Not Available Not Available 07/12/2024 10:30:07/02/19 25 07/01/2024 Compr ehens darrin metab olic 1999 panel - Serum or Plasm a alkaline phosphatase [enzymatic activity/vol ume] in serum or plasma 114 U/L low: 40U/Lh igh: 150U/L Not Available Not Available 07/12/2024 10:30:19 07/02/19 25 07/01/2024 Compr ehens darrin metab olic 2000 panel - Serum or Plasm a IS the patient required to BE fasting? No Not Available Not Available 07/12/2024 10:30:19 07/02/19 25 07/01/2024 Compr ehens darrni metab olic 2000 panel - Serum or Plasm a glomerular filtration rate [volume rate/area] in serum, plasma or blood by creatinine-b ased formula (CKD-epi 2020)/1.73 sq M low: 60 Creat inine Clear ance is the prefe rred crite siria for selec ting drug dose adjus tment s in renal ly impai red patie nts. The GFR is provi ded as addit ional perti nent clini otilia infor matio n. GFR is repor edda in mL/mi n/1.7 3 sq m. Calcu latio n based on the Chron ic Kidne y Disea se Epide miolo gy Colla borat ion (CKD- EPI) equat ion refit witho ut adjus tment for race. Not Available Not Available 07/12/2024 10:30:19 07/02/19 25 07/01/2024 Compr ehens darrin metab olic 1999 panel - Serum or Plasm a glomerular filtration rate [volume rate/area] in serum, plasma or blood by creatinine-b ased formula (MDRD)/1.73 sq M among black population low: 60 Not Available Not Available 07/12/2024 10:30:19 07/02/19 25 07/01/2024 Compr ehens darrin metab olic 1999 panel - Serum or Plasm a glomerular filtration rate [volume rate/area] in serum, plasma or blood by creatinine-b ased formula (MDRD)/1.73 sq M among non black population low: 60 Not Available Not Available 07/12/2024 10:30:19 07/02/19 25 07/01/2024 Compr ehens darrin metab olic 2000 panel - Serum or Plasm a interpretati on and review of laboratory results Abnorm al Not Available Not Available 10:30:19 07/02/1907/01/2024 Drugs of abuse panel - Urine by Cooper stone metho ronit amphetamine [presence] in urine by screen method NON DETECT ED text: non detect ed FOR MEDIC AL USE ONLY. CUTOF F ZAHEER NTRAT ION FOR DETEC EDDA RESUL T: AMPHE TAMIN E: 500 NG/ML Not Available Not Available 07/12/2024 10:30:19 07/02/19 25 07/01/2024 Drugs of abuse panel - Urine by Cooper stone metho ronit benzodiazepi aravind [presence] in urine NON DETECT ED text: non detect ed FOR MEDIC AL USE ONLY. CUTOF F ZAHEER NTRAT ION FOR DETEC EDDA RESUL T: BENZO DIAZA PINE: 200 NG/ML Not Available Not Available 07/12/2024 10:30:19 07/02/19 25 07/01/2024 Drugs of abuse panel - Urine by Cooper rodrigezo ronit benzoylecgon ine [presence] in urine NON DETECT ED text: non detect ed FOR MEDIC AL USE ONLY. CUTOF F ZAEHER NTRAT ION FOR DETEC EDDA RESUL T: COCAI NE: 150 NG/ML Not Available Not Available 07/12/2024 10:30:07/02/1907/01/2024 Drugs of abuse panel - Urine by Cooper rodrigezo ronit opiates [presence] in urine NON DETECT ED text: non detect ed FOR MEDIC AL USE ONLY. CUTOF F ZAHEER NTRAT ION FOR DETEC EDDA RESUL T: OPIAT ES: 300 NG/ML Not Available Not Available 07/12/2024 10:30:19 07/02/1907/01/2024 Drugs of abuse panel - Urine by Cooper rodrigezo ronit phencyclidin e [presence] in urine NON DETECT ED text: non detect ed FOR MEDIC AL USE ONLY. CUTOF F ZAHEER NTRAT ION FOR DETEC EDDA RESUL T: PCP: 25 NG/ML Not Available Not Available 07/12/2024 10:30:19 07/02/19 25 07/01/2024 Drugs of abuse panel - Urine by Cooper stone metho ronit cannabinoids [presence] in urine NON DETECT ED text: non detect ed FOR MEDIC AL USE ONLY. CUTOF F ZAHEER NTRAT ION FOR DETEC EDDA RESUL T: THC (CHANDLER PEREZ ): 50 NG/ML Not Available Not Available 07/12/2024 10:30:19 07/02/19 25 07/01/2024 Drugs of abuse panel - Urine by Cooper cottrell barbiturates [presence] in urine NON DETECT ED text: non detect ed FOR MEDIC AL USE ONLY. CUTOF F ZAHEER NTRAT ION FOR DETEC EDDA RESUL T: PATIENCE TUATE S: 200 NG/ML Not Available Not Available 07/12/2024 10:30:19 07/02/19 25 07/01/2024 Drugs of abuse panel - Urine by Cooper cottrell ur fentanyl NON DETECT ED text: non detect ed FOR MEDIC AL USE ONLY. CUTOF F ZAHEER NTRAT ION FOR DETEC EDDA RESUL T: FENTA NYL: 1.0 NG/ML Not Available Not Available 07/12/2024 10:30:19 07/02/19 25 07/01/2024 Drugs of abuse panel - Urine by Cooper cottrell interpretati on and review of laboratory results Normal Not Available Not Available 04/2024 10:30:19 07/14/19 25 07/14/2024 C ALBIC ANS + C GLABR SHAMA, DAMIÁN aundrea albicans, DAMIÁN NEGATI VE negati ve Not Available [facility] ([facility]) [address] [place], [address], 07/15/2024 07:12:43 07/14/19 25 07/14/2024 C ALBIC ANS + C GLABR SHAMA, DAMIÁN aundrea glabrata, DAMIÁN NEGATI VE negati ve Not Available [facility] ([facility]) [address] [place], [address], 07/15/2024 07:12:43 07/14/19 25 07/14/2024 BACTE RIAL VAGIN OSIS, DAMIÁN atopobium vaginae LOW - 0 score Not Available [facility] ([facility]) [address] [place], [address], 07/15/2024 07:12:45 07/14/19 25 07/14/2024 BACTE RIAL VAGIN OSIS, DAMIÁN bvab 2 LOW - 0 score Not Available [facility] ([facility]) [address] [facility], [place], [address], 07/15/2024 07:12:45 07/14/19 25 07/14/2024 BACTE RIAL VAGIN OSIS, DAMIÁN megasphaera 1 LOW - 0 score Calcu late total score by daria bolden the 3 indiv idual bacte rial vagin osis (BV) marke r score s toget her. Total score is inter prete d as follo ws: Total score 0-1: Indic ates the absen ce of BV. Total score 2: Indet ermin ate for BV. Addit ional clini otilia data shoul d be evalu ated to estab enrike a diagn osis. Total score 3-6: Indic ates the prese nce of BV. Not Available [facility] ([facility]) [address] [facility], [place], [address], 07/15/2024 07:12:45 07/14/19 25 07/14/2024 IGP,C TNGTV ,APT HPV,R FX16/ 18,45 HPV aptima POSITI VE negati ve abnormal This nucle ic acid ampli ficat ion test detec ts fourt een high- risk HPV types (16,1 8,31, 33,35 ,39,4 5,51, 52,56 ,58,5 9,66, 68) witho ut diffe renti ation . Not Available [facility] ([facility]) [address] [facility], [place], [address], 07/18/2024 16:22:01 07/14/19 25 07/14/2024 IGP,C TNGTV ,APT HPV,R FX16/ 18,45 chlamydia, nuc. acid amp NEGATI VE negati ve Not Available [facility] ([facility]) [address] [facility], [place], [address], 07/18/2024 16:22:01 07/14/19 25 07/14/2024 IGP,C TNGTV ,APT HPV,R FX16/ 18,45 gonococcus, nuc. acid amp NEGATI VE negati ve Not Available [facility] ([facility]) [address] [place], [address], 07/18/2024 16:22:01 07/14/19 25 07/14/2024 IGP,C TNGTV ,APT HPV,R FX16/ 18,45 trich vag by DAMIÁN NEGATI VE negati ve Not Available [facility] ([facility]) [address] [place], [address], 07/18/2024 16:22:01 07/14/19 25 07/18/2024 IGP,C TNGTV ,APT HPV,R FX16/ 18,45 diagnosis: COMMEN T abnormal EPITH ELIAL CELL ABNOR MALIT Y. ATYPI OTILIA SQUAM OUS CELLS OF UNDET ERMIN ED SIGNI FICAN CE (ASC- US). CELLU LAR EARL ES ASSOC IATED WITH ATROP HY ARE PRESE NT. Not Available [facility] ([facility]) [address] [place], [address], 07/18/2024 16:22:01 07/14/1907/18/2024 IGP,C TNGTV ,APT HPV,R FX16/ 18,45 specimen adequacy: COMMEN T Satis facto ry for evalu ation . Endoc ervic al and/o r squam ous metap lasti c cells (endo cervi otilia compo nent) are prese nt. Not Available [facility] ([facility]) [address] [place], [address], 07/18/2024 16:22:01 07/14/19 25 07/18/2024 IGP,C TNGTV ,APT HPV,R FX16/ 18,45 clinician provided ICD10: LUCIA T Z01.4 19 N89.8 Not Available [facility] ([facility]) [address] [place], [address], 07/18/2024 16:22:01 07/14/19 25 07/18/2024 IGP,C TNGTV ,APT HPV,R FX16/ 18,45 performed by: LUCIA kate, Cytol ogist (ASCP ) Not Available [facility] ([facility]) [address] [facility], [place], [address], 07/18/2024 16:22:01 07/14/19 25 07/18/2024 IGP,C TNGTV ,APT HPV,R FX16/ 18,45 electronical ly signed by: LUCIA Casillas MD, Patho janet t Not Available [facility] ([facility]) [address] [facility], [place], [address], 07/18/2024 16:22:01 07/14/19 25 07/18/2024 IGP,C TNGTV ,APT HPV,R FX16/ 18,45 . . Not Available [facility] ([facility]) [address] [facility], [place], [address], 07/18/2024 16:22:01 07/14/19 25 07/18/2024 IGP,C TNGTV ,APT HPV,R FX16/ 18,45 pathologist provided ICD10: LUCIA Ochoa R87.6 10 Not Available [facility] ([facility]) [address] [place], [address], 07/18/2024 16:22:01 07/14/19 25 07/18/2024 IGP,C TNGTV ,APT HPV,R FX16/ 18,45 note: LUCIA Ochoa The Pap smear is a scree demian test desig fede to aid in the detec tion of jaky ligna nt and malig nant condi tions of the uteri ne cervi x. It is not a diagn ostic proce dure and shoul d not be used as the sole means of detec ting cervi otilia cance r. Both false -posi tive and false -nega tive repor ts do occur . Not Available [facility] ([facility]) [address] [facility], [place], [address], 07/18/2024 16:22:01 07/14/19 25 07/18/2024 IGP,C TNGTV ,APT HPV,R FX16/ 18,45 test methodology: COMMEN T This liqui d based ThinP rep(R ) pap test was cooper mistry with the use of an image guide ronit mcghee. Not Available [facility] ([facility]) [address] [facility], [place], [address], 07/18/2024 16:22:01 07/14/19 25 07/18/2024 IGP,C TNGTV ,APT HPV,R FX16/ 18,45 HPV genotype reflex COMMEN T Crite siria not met, HPV Genot ype not perfo rmed. Not Available [facility] ([facility]) [address] [facility], [place], [address], 07/18/2024 16:22:01 07/14/19 25 07/13/2024 urina lysis , dipst ick Leukocytes Negati ve Not Available In-Office Order Internal Use Only DO Not Attach Compendium DO Not Attach Compendium, Do Not Delete/merge, 07/13/2024 16:13:10 07/14/19 25 07/13/2024 urina lysis , dipst ick Nitrite negati ve Not Available In-Office Order Internal Use Only DO Not Attach Compendium DO Not Attach Compendium, Do Not Delete/merge, 07/13/2024 16:13:10 07/14/19 25 07/13/2024 urina lysis , dipst ick Urobilinogen .2 Not Available In-Of fice Order Internal Use Only DO Not Attach Compendium DO Not Attach Compendium, Do Not Delete/merge, 07/13/2024 16:13:10 07/14/19 25 07/13/2024 urina lysis , dipst ick Protein Negati ve Not Available In-Office Order Internal Use Only DO Not Attach Compendium DO Not Attach Compendium, Do Not Delete/merge, 07/13/2024 16:13:10 07/14/1907/13/2024 urina lysis , dipst ick pH 5.5 Not Available In-Office Order Internal Use Only DO Not Attach Compendium DO Not Attach Compendium, Do Not Delete/merge, 07/13/2024 16:13:10 07/14/19 25 07/13/2024 urina lysis , dipst ick Blood Negati ve Not Available In-Office Order Internal Use Only DO Not Attach Compendium DO Not Attach Compendium, Do Not Delete/merge, 07/13/2024 16:13:10 07/14/19 25 07/13/2024 urina lysis , dipst ick Specific Sunflower 1.010 Not Available In-Off ice Order Internal Use Only DO Not Attach Compendium DO Not Attach Compendium, Do Not Delete/merge, 07/13/2024 16:13:10 07/14/19 25 07/13/2024 urina lysis , dipst ick Ketone Negati ve Not Available In-Office Order Internal Use Only DO Not Attach Compendium DO Not Attach Compendium, Do Not Delete/merge, 07/13/2024 16:13:10 07/14/19 25 07/13/2024 urina lysis , dipst ick Bilirubin Negati ve Not Available In-Office Order Internal Use Only DO Not Attach Compendium DO Not Attach Compendium, Do Not Delete/merge, 07/13/2024 16:13:10 07/14/19 25 07/13/2024 urina lysis , dipst ick Glucose Negati ve Not Available In-Office Order Internal Use Only DO Not Attach Compendium DO Not Attach Compendium, Do Not Delete/merge, 07/13/2024 16:13:10 07/14/19 25 07/13/2024 urina lysis , dipst ick Appearance Clear Not Available In-Offi ce Order Internal Use Only DO Not Attach Compendium DO Not Attach Compendium, Do Not Delete/merge, 07/13/2024 16:13:10 07/14/19 25 07/13/2024 urina lysis , dipst ick Color Yellow Not Available In-Office Order Internal Use Only DO Not Attach Compendium DO Not Attach Compendium, Do Not Delete/merge, [id number] 07/13/2024 16:13:10 07/06/19 20 07/05/2019 MAMMO , scree demian, digit al, bilat eral No observ ation record ed. [facility] (Scheduling) [address], [place], [address], 07/06/2019 16:17:19 07/06/19 20 07/06/2019 US, pelvi s, trans abdom inal + trans vagin al No observ ation record ed. [facility] [address], [place], [address], 07/12/2019 11:53:52 Result Notes None recorded. Problems Name Problem SNOMED Code Status Onset Date Resolution Date Notes Provider Name and Address Organization Details Recorded Time Arthritis 9129302 Active Tarsha Z[place], [place] [facility] 10:24:15 Hypertensive disorder 70184884 Active [place] [facility] 10:24:15 Disorder of thyroid gland 24725908 Active [place] [facility] 10:24:15 Mitral valve prolapse 205271747 Active [place] [facility] 10:24:15 Fibromyositis 21308520 Active [place] [facility] 10:24:15 Performance anxiety 116024643 Active T[place]ha [place] [facility] 5 10:24:15 Problem Notes None recorded. Procedures Surgical History Date Name Laterality Status Provider Name and Address Organization Details Recorded Time 07/14/19 25 Date of Last Pap Smear completed Luci Britton RN [facility] 07/18/2024 17:15:00 07/05/19 20 Most Recent Mammogram completed ABHIJEET Good [facility] 12/19/2019 11:15:06 operative procedure on peripheral nerve completed Elham Parikh [place] [facility] 07/13/2024 16:00:01 Colonoscopy completed Tarsha Zavala [facility] 03/09/2014 10:24:15 Cholecystectomy completed Tarsha Zavala [facility] 03/09/2014 10:24:15 [facility] 03/09/2014 10:24:15 [facility] 10[facility]24:15 Imaging Results None recorded. Procedure Notes None recorded. Medical Equipment None Reported. Allergies Allergen ID Allergen Name Allergen Category Reaction Reaction Severity Criticality Documentation Date Start Date Code Code System Note Provider Name and Address Organization Details Recorded Time 160652 Iodinated contrast media (substanc e) medicatio n hives moderate Not available 07/13/2024 16925 2004 SNOMED Elham BRYAN Parikh [facility], [facility] 15:52:58 Product containin g penicilli n (product) medicatio n rash moderate Not available 03/09/2014 67617 8001 [facility] 10:24:15 82095 Keflex medicatio n rash moderate Not available 06/23/201649605 7 RxNorm Ada Miller, MA [facility], [facility] 7 09:24:35 Medications Name Sig Start Date Stop Date Status Note LastModified by Organization Details LastModified Time gabapentin 600 mg tablet TAKE 1 TABLET BY MOUTH THREE TIMES DAILY active Not Available Not Available No t Available doxycycline hyclate 100 mg capsule TAKE 1 CAPSULE BY MOUTH TWICE DAILY FOR 10 DAYS 07/13 completed Not Available Not Available Not Available clindamycin HCl 300 mg capsule TAKE ONE CAPSULE BY MOUTH THREE TIMES DAILY UNTIL ALL TAKEN active Not Available Not Available No t Available trazodone 50 mg tablet TAKE 1 TO 2 TABLETS BY MOUTH DAILY AT BEDTIME NEEDED active Not Available Not Available No t Available hydrocodone 5 mg-acetamin ophen 325 mg tablet 04/12 completed Not Available Not Available Not Available ondansetron HCl 4 mg tablet 07/08 completed Not Available Not Available Not Available prednisone 20 mg tablet TAKE 1 TABLET BY MOUTH TWICE DAILY FOR 5 DAYS 07/13 completed Not Available Not Available Not Available sertraline 100 mg tablet TAKE 1 AND 1/2 TABLETS BY MOUTH DAILY active Not Available Not Available No t Available metronidazo le 500 mg tablet Take 1 tablet every 12 hours by oral route for 7 days. 04/12 completed Not Available Not Available Not Available hydroxyzine HCl 50 mg tablet TAKE 1 TABLET BY MOUTH EVERY 6 HOURS NEEDED 04/12 completed Not Available Not Available Not Available sulfamethox azole 800 mg-trimetho prim 160 mg tablet 07/08 completed Not Available Not Available Not Available hydrocodone 10 mg-acetamin ophen 325 mg tablet TAKE 1 TABLET BY MOUTH TWICE DAILY NEEDED FOR MODERATE TO SEVERE PAIN active Not Available Not Available No t Available tramadol 50 mg tablet TAKE 1 TABLET BY MOUTH EVERY 8 HOURS NEEDED FOR MODERATE TO SEVERE PAIN 04/12 completed Not Available Not Available Not Available levothyroxi ne 25 mcg tablet TAKE 1 TABLET BY MOUTH DAILY IN THE MORNING ON AN EMPTY STOMACH active Not Available Not Available No t Available alprazolam 0.5 mg tablet TAKE 1 TABLET BY MOUTH TWICE DAILY NEEDED FOR ANXIETY 04/12 completed Not Available Not Available Not Available trazodone 100 mg tablet 04/12 completed Not Available Not Available Not Available buspirone 10 mg tablet 04/12 completed Not Available Not Available Not Available orphenadrin e citrate ER 100 mg tablet,exte nded release TAKE 1 TABLET BY MOUTH TWICE DAILY 04/12 completed Not Available Not Available Not Available nitroglycer in 0.4 mg sublingual tablet 04/12 completed Not Available Not Available Not Available gabapentin 300 mg capsule TAKE ONE CAPSULE BY MOUTH THREE TIMES DAILY 07/13 completed Not Available Not Available Not Available diclofenac sodium 75 mg tablet,sanjana yed release Take 1 tablet twice a day by oral route. 04/12 completed Not Available Not Available Not Available ergocalcife rol (vitamin D2) 1,250 mcg (50,000 unit) capsule 06/28 completed Not Available Not Available Not Available methylpredn isolone 4 mg tablets in a dose pack FOLLOW PACKAGE DIRECTION S 04/12 completed Not Available Not Available Not Available albuterol sulfate HFA 90 mcg/actuati on aerosol inhaler TAKE 2 PUFFS BY MOUTH EVERY 6 HOURS NEEDED FOR WHEEZING active Not Available Not Available No t Available fluticasone propionate 50 mcg/actuati on nasal spray,suspe nsion SHAKE LIQUID AND USE 1 SPRAY IN EACH NOSTRIL DAILY active Not Available Not Available No t Available sertraline 50 mg tablet TAKE 1 TABLET BY MOUTH EVERY DAY 04/12 completed Not Available Not Available Not Available loratadine 10 mg tablet TAKE 1 TABLET BY MOUTH DAILY 07/13 completed Not Available Not Available Not Available buspirone 15 mg tablet TK 1 T PO TID 04/12 completed Not Available Not Available Not Available hydroxyzine pamoate 25 mg capsule TAKE 1 CAPSULE BY MOUTH THREE TIMES DAILY NEEDED FOR ANXIETY 07/13 completed Not Available Not Available Not Available azithromyci n 500 mg tablet 06/28 completed Not Available Not Available Not Available cyclobenzap rine 5 mg tablet TAKE 1 TABLET BY MOUTH UP TO THREE TIMES DAILY NEEDED active Not Available Not Available No t Available rosuvastati n 20 mg tablet TAKE 1 TABLET BY MOUTH DAILY active Not Available Not Available No t Available bupropion HCl XL 300 mg 24 hr tablet, extended release TAKE 1 TABLET BY MOUTH EVERY DAY IN THE MORNING 04/12 completed Not Available Not Available Not Available bupropion HCl XL 150 mg 24 hr tablet, extended release TAKE 1 TABLET BY MOUTH EVERY DAY IN THE MORNING active Not Available Not Available No t Available varenicline tartrate 0.5 mg (11)-1 mg (42) tablets in a dose pack FOLLOW PACKAGE DIRECTION S active Not Available Not Available No t Available quetiapine 50 mg tablet TAKE 1 TABLET BY MOUTH EVERY DAY AT BEDTIME active Not Available Not Available No t Available albuterol sulfate 90 mcg/actuati on breath activated powder inhaler Inhale 2 puffs every 4 hours by inhalatio n route. active Not Available Not Available No t Available Vitals Date Recorded Body height Body mass index (BMI) Body weight Body temperature Respiratory rate Heart rate Systolic blood pressure Diastolic blood pressure Provider Name and Address Organization Details Last Updated DateTime 4 165.1 cm 22.2 kg/m2 32553.1 9 g 97.7 [degF] 16 /min 66 /min 116 mm[Hg] 75 mm[Hg] Alisia BRYAN Salguero [facility] 4 09:18:46 Date Recorded Body weight Provider Name an d Address Organization Details Last Updated DateTime 06/29/2019 94994.19 g Javier MccarthyBRYAN monae [facility] 020 10:59:05 Date Recorded Body height Body mass index (BMI) Body weight Systolic blood pressure Diastolic blood pressure Provider Name and Address Organization Details Last Updated DateTime 07/08/2017 165.1 cm 28.1 kg/m2 60074.11 g 120 mm[Hg] 78 mm[Hg] Whitney BRYAN Spencer [facility] 8 10:40:10 Date Recorded Body height Body mass index (BMI) Body weight Systolic blood pressure Diastolic blood pressure Provider Name and Address Organization Details Last Updated DateTime 07/13/2024 165.1 cm 23.5 kg/m2 50870.24 g 91 mm[Hg] 52 mm[Hg] Elham Parikh MA [facility] 5 15:51:39 Date Recorded Body height Body mass index (BMI) Body weight Systolic blood pressure Diastolic blood pressure Provider Name and Address Organization Details Last Updated DateTime 12/19/2019 165.1 cm 22.7 kg/m2 53612 g 118 mm[Hg] 62 mm[Hg] Elham Parikh MA [facility] 0 11:52:45 Social History Question Answer Notes LastModified by Organizat ion Details LastModified Time Tobacco Smoking Status Unknown If Ever Smoked Elham Parikh MA null, [facility] 07/13/2024 15:56:20 Do You Have An Advance Directive? No Information not available 07/13/2024 How Many Years Have You Consumed Alcohol? 25 Information not available 07/13/2024 Is Blood Transfusion Acceptable In An Emergency? Yes Information not available 07/13/2024 What Is Your Level Of Caffeine Consumption? Moderate Information not available 07/13/2024 In The 14 Days Before Symptom Onset, Have You Had Close Contact With A Laboratory-confir med COVID-19 While That Case Was Ill? No Information not available 07/13/2024 In The 14 Days Before Symptom Onset, Have You Had Close Contact With A Person Who Is Under Investigation For COVID-19 While That Person Was Ill? No Information not available 07/13/2024 Have You Been To An Area Known To Be High Risk For COVID-19? No Information not available 07/13/2024 What Type Of Diet Are You Following? CARBOHYDRATE Information not available 07/13/2024 What Is The Highest Grade Or Level Of School You Have Completed Or The Highest Degree You Have Received? [id number] Information not available 07/13/2024 Have There Been Any Changes To Your Family Or Social Situation? No Information no t available 07/13/2024 What Was The Date Of Your Most Recent Tobacco Screening? 07/13/2024 Information not available 07/13/2024 How Many Children Do You Have? 3 Information not available 03/09/2014 Do You Have Any Pets? No Information not available 07/13/2024 What Is Your Relationship Status? Information not available 07/13/2024 Do You Use Your Seat Belt Or Car Seat Routinely? Yes Information not available 07/13/2024 Are You Sexually Active? No Information not available 07/13/2024 Do You Have Smoke And Carbon Monoxide Detectors In Your Home? Yes Information not available 07/13/2024 Are You Passively Exposed To Smoke? No Information no t available 07/13/2024 How Much Tobacco Do You Smoke? No Information not available 06/29/2019 Do You Use Sunscreen Routinely? No Information not available 07/13/2024 On What Date Was Tobacco Cessation Counseling Provided? 07/13/2024 Information not available 07/13/2024 How Many Years Have You Smoked Tobacco? 15 On And Off Information not available 06/29/2019 Sex: Female Functional Status Question Answer Note LastModified by Organizat ion Details LastModified Time Do you use any illicit or recreational drugs? No Information not available 07/13/2024 What is your level of alcohol consumption? Occasional Information not available 03/09/2014 Do you or have you ever used smokeless tobacco? Never used smokeless tobacco Information not available 06/29/2019 Are you currently employed? 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 Never used electronic cigarettes Information not available 06/29/2019 What is your exercise level? None Information not available 07/13/2024 Mental Status Question Answer Note LastModified by Organization D etails LastModified Time Do you feel stressed (tense, restless, nervous, or anxious, or unable to sleep at night)? [id number] Information not available 07/13/2024 Family History Relationship Description Onset Age of this Age Resolved Age Notes LastModified by Organization Details LastModified Time Father Heart disease [email or web address] Not available 03/09 10:24:15 Father Cerebrovascu lar accident [email or web address] Not available 10:24:15 Notes:PATERNAL UNCLE--LUNG C ANCER----MATERNAL PARENTS--[HTN--STROKE] Medical History Condition Response Muscle, Joint, or Bone Problems Y Anxiety/Depression Y Heart Problems/Murmur Y Arthritis Y Heart Disease Y Headaches/Migraines Y Fibromyalgia Y Kidney or Bladder Problems Y Thyroid Problems Y Hypertension Y Osteoporosis Y Gynecological History Statement/Question Response Abnormal Pap N STIs/STDs N Age at Menarche 11 Current Control Method Menopause Most Recent Mammogram 07/05/2019 Age at First Child 20 If Post Menopausal, Age at Menopause 50 Sexually Active? N Menses Monthly N Date of Last Pap Smear 07/13/2024 LMP Obstetrics History GPAL:G 4 P 3 0 1 3 Type Value Multiple Births 0 Full Term 3 Induced 0 Spontaneous 1 Premature 0 Living 3 Ectopics 0 Total 4 Immunizations Vaccine Type Date Status Note Provider Nam e and Address Organization Details Recorded Time Tdap 6 completed Not Available [facility] 07/13/2024 15:49:34 MMR 6 completed Not Available [facility] 07/13/2024 15:49:34 Influenza, split virus, trivalent, PF 6 completed Not Available [facility] 07/13/2024 15:49:34 Influenza, split virus, quadrivalent, PF 0 completed Not Available [facility] 07/13/2024 15:49:34 COVID-19, mRNA, LNP-S, PF, 30 mcg/0.3 mL dose 0 completed Not Available [facility] 07/13/2024 15:49:34 COVID-19, mRNA, LNP-S, PF, 30 mcg/0.3 mL dose 1 completed Not Available [facility] 07/13/2024 15:49:34 Pneumococcal conjugate PCV20, polysaccharide ZAL593 conjugate, adjuvant, PF 5 completed Not Available [facility] 07/13/2024 15:49:34 Past Encounters Encounter ID Performer Location Encounter Start Date Encounter Closed Date Diagnosis/Indication Diagnosis SNOMED-CT Code Diagnosis ICD10 Code Diagnosis Note [id number] MD Peggy Han [facility] 122) 2 [facility] [address] [place] [address] 06/23/2016 08:51:35 06/23/2016 14:29:01 Gynecologic examination 79391658 Z01.419 Venereal d isease screening 965058023 Z11.3 [id number] MD Peggy Han 14 OB 4 [facility] [address] [place] [address] 07/08/2017 10:26:50 07/08/2017 16:06:10 Gynecologic examination 98979799 Z01.419 CBE and pelvic exam performed. Screening mammography 24 237285 Z12.31 Pain in pelvis 85985303 R10.2 [id number] MD Peggy Han 14 OB 4 [facility] [address] [place] [address] 06/29/2019 10:56:24 06/29/2019 21:40:40 Pain in pelvis 84869899 R10.2 [id number] MD Peggy Han 14 OB 4 [facility] [address] [place] [address] 12/19/2019 11:31:27 12/20/2019 10:10:02 Gynecologic examination 68985409 Z01.419 CBE and pap smear performed. Screening mammography 24 777565 Z12.31 Vaginal discharge 785813 006 N89.8 Bacterial vaginosis 4197 49810 N76.0 [id number] MD Peggy Molina 14 IM 4 [facility] [address] [place] [address] 04/13/2023 09:04:28 04/15/2023 08:41:37 Body mass index 20-24 - normal 970767855 Z68.22 Patient educated on healthy eating habits and exercise at least 30 mins per day. A diet comprised of four to five servings of fruit, four to five servings of vegetables , and two to three servings of low-fat dairy per day, with <25 percent of daily caloric intake from fat. Urinary incontinence 165 774713 R32 - incontinen ce for about 3 to 6 months now.Differ entials includes; stress or urge incontinen ce, infection, constipati on, normal pressure hydrocepha aisha. UA recently done at PCP office was WNL ruling out infection. She reports normal bowel movements ruling constipati on. Normal findings on physical exam, incontinen ce most likely related to stress or urge incontinen ce. History of 3 vaginal deliveries also makes stress incontinen t more likely. Recommende d pelvic floor exercise and referral for therapy placed.[facility] ed on history provided by patient about recently feeling forgetfuln ess, incontinen ce and falls, recommenda tions were made for patient to follow up with PCP for further evaluation to rule out normal pressure hydrocepha aisha.- UA pending Screening for malignant neoplasm of cervix 960694454 Z12.4 screening due [id number] MD Peggy Han 14 OB 4 [facility] [address] [place] [address] 07/13/2024 15:25:30 07/14/2024 13:43:42 Gynecologic examination 62251443 Z01.419 CBE and pap smear performed. At [facility] ed risk of urinary tract infection 329849548 Z91.89 Body mass index 20-24 - normal 115454518 Z68.23 Positive s creening for depression on PHQ-9 (Patient Health Questionnaire 9) 1109010259 13884 Z13.31 --PHQ9=15- -Pt follows with a provider at [facility] Vaginal odor 980417984 N 89.8 Health Concerns Section Related Observation LastModified by Organization Detai ls LastModified Time None Recorded Concern Status LastModified by Organization Details LastModified Time None Recorded Advance Directives Directive N: Payers Encounter Date Sequence Insurance Name Policy Number Policy Knox Covered Member ID Knox Member ID Guarantor Name 07/08/2017 1 [facility] (PPO) [id number] Lisa Winkler [id number] Lisa Winlker 06/29/2019 1 [employer] [id number] Lisa Winkler [id number] Lisa Winkler 12/19/2019 1 [employer] [id number] Lisa Winkler [id number] 1 Lisa Winkler 04/13/2023 1 [employer] (POS II) [id number] Lisa Winkler [id number] Lisa Winkler 07/13/2024 1 [employer] Lisa Winkler [id number] Lisa Winkler Notes Date Note Type Note Provider Name and Address Organization Details Recorded Time 07/08/2017 text/html Annual [employer] Post-MenopausalReport ed bypatient.Menopausal Symptoms:no menopausal symptoms; normal vaginal lubrication Vaginal Bleeding:history of menopause having occurred; no history of post menopausal bleeding Urinary Symptoms:no hematuria; no nocturia; no urinary frequency;stress incontinence Vulva:no genital lesion; no vulvar atrophy Vagina:normal vaginal discharge; no vaginal atrophy Breast:no breast lump; no nipple discharge; no breast pain Sexual Complaints:no sexual complaints Psychological Symptoms:no depression; no anxiety Preventive Measures:needs to schedule mammogram Patient states she feels pelvic pain and pressure irregularly. She states the symptoms usually occur together, and she cannot associate the symptoms with anything. Bienvenido Augustin MD Attn: [address] [place], [address], [place] [facility] 07/08/2017 11:26:42 06/29/2019 text/html I spoke with the patient who has pain in her abdomen. She states that the pain is severe near the belly button. She also admits to pain on the right and left lower quadrant. She describes the pain as dull but sometimes it is sharp. She denies radiation. Started February, nothing improves worsens the pain. She has a history of back pain, and states that she lost 15 pounds unexpectantly. The patient is concerned that she has cancer. Bienvenido Augustin MD Attn: [address] [place], [address], [facility] 06/29/2019 11:22:08 12/19/2019 text/html Annual [employer] Post-MenopausalReport ed bypatient.Menopausal Symptoms:no menopausal symptoms; normal vaginal lubrication Vaginal Bleeding:history of menopause having occurred; no history of post menopausal bleeding Urinary Symptoms:no hematuria; no incontinence; no nocturia; no urinary frequency Vulva:no genital lesion; no vulvar atrophy Vagina:no vaginal atrophy;foul-smelling Breast:no breast lump; no nipple discharge; no breast pain Sexual Complaints:no sexual complaints Psychological Symptoms:no depression; no anxiety Elham Parikh MA [facility], [place] [facility] 12/26/2019 16:35:10 04/13/2023 text/html Lisa is a 62 yo F who presents to the clinic to establish delivery coordinator care. Patient is being managed by Mr. Laureano Rehman PIPE LAYER HELPER at [place]. Urine incontinent - ongoing for the past 3 to 6 months now. UA recently done at the PCP's office was negative for UTI. She reports waking up at least 1x per night to urinate, denies dysuria, some pressure and frequency due to not fully emptying her bladder. She also noticed headaches in the last 6 months as well which is new to her. Her PCP told her its most likely allergies related and provided her with claritin and nasal spray. She reports the headaches to frequent but denies new onset vision changes and dizziness. She reports falling about 3x in the last 6 months and denies hitting her head each time, forgetfulness. No trouble with walking and walks about 3 miles on the treadmill 3 to 4x per week. She is unsure if her PCP is aware about the falling. 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 history3 children all spontaneous vaginal deliveries. Preventive carepap smear - done 12/19/2019 with normal resultMammogram - done 07/05/2019 with normal resultSmoker - currently vape nicotine Elham Benson MD Attn: [address] [place], [address], 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 She states that if she relaxes her pelvic muscles she will completely empty but is usually rushing because of work. Vulva:no genital lesion; no vulvar atrophy Vagina:normal vaginal discharge; no vaginal atrophy Breast:no breast lump; no nipple discharge; no breast pain Sexual Complaints:no sexual complaints Psychological Symptoms:no depression; no anxiety Bienvenido Augustin MD Attn: [address] [place], [address], [facility] 07/13/2024 17:07:55 OBGyn Episode Ob Episode Information Episode Created Date Number of Fetuses Patient Bloodtype Patient rh Status Prepregnancy Weight lbs Domestic Partner Domestic Partner Phone Father Name Meter Setter Status 06/29/19 1 CLOSED Fetus Data First Name Last Name Admitted to NICU Weight (g) Sex Living Outcome Pediatric Complications Fetus ID Race Codes Race Delivery Type 3175.14 4 F Full Term [id number] Vaginal Scottie Calculation Initial Scottie Date Initial Exam Date Initial Exam Provider Initial Ultrasound Date Last Menstrual Period Date Ultra Sound Weeks Gestation 0 Eighteen To Twenty Week Scottie Update Ultra Sound Date Fundal Height At Umbil Quickening Date Ultra Sound Latest Weeks Gestation Final Scottie Confirmed By Final Scottie Confirmed Date Final Scottie Date Ultra Sound Latest Days Gestation 0 0 Menstrual History Last Menstrual Date Menses Monthly On Bcp Conception Prior Menses Frequency Hcg Plus Date Menarche Onset Age Delivery Information Delivery Date Delivery Type Labor Anesthesia Weeks Gestation Incision Type Labor Labor Length Hrs Delivered By Post Complications Tubal Sterilization Discharge Date Comments 1 Discharge Information Feeding Method Contraceptive Method Maternal HG B and HCT Levels Ob Episode Information Episode Created Date Number of Fetuses Patient Bloodtype Patient rh Status Prepregnancy Weight lbs Domestic Partner Domestic Partner Phone Father Name Meter Setter Status 06/29/19 20 1 CLOSED Fetus Data First Name Last Name Admitted to NICU Weight (g) Sex Living Outcome Pediatric Complications Fetus ID Race Codes Race Delivery Type 3458.63 9 M Full Term [id number] Vaginal Scottie Calculation Initial Scottie Date Initial Exam Date Initial Exam Provider Initial Ultrasound Date Last Menstrual Period Date Ultra Sound Weeks Gestation 0 Eighteen To Twenty Week Scottie Update Ultra Sound Date Fundal Height At Umbil Quickening Date Ultra Sound Latest Weeks Gestation Final Scottie Confirmed By Final Scottie Confirmed Date Final Scottie Date Ultra Sound Latest Days Gestation 0 0 Menstrual History Last Menstrual Date Menses Monthly On Bcp Conception Prior Menses Frequency Hcg Plus Date Menarche Onset Age Delivery Information Delivery Date Delivery Type Labor Anesthesia Weeks Gestation Incision Type Labor Labor Length Hrs Delivered By Post Complications Tubal Sterilization Discharge Date Comments 9 Discharge Information Feeding Method Contraceptive Method Maternal HG B and HCT Levels Ob Episode Information Episode Created Date Number of Fetuses Patient Bloodtype Patient rh Status Prepregnancy Weight lbs Domestic Partner Domestic Partner Phone Father Name Meter Setter Status 06/29/19 20 1 CLOSED Fetus Data First Name Last Name Admitted to NICU Weight (g) Sex Living Outcome Pediatric Complications Fetus ID Race Codes Race Delivery Type 2551.45 5 M Full Term [id number] Vaginal Scottie Calculation Initial Scottie Date Initial Exam Date Initial Exam Provider Initial Ultrasound Date Last Menstrual Period Date Ultra Sound Weeks Gestation 0 Eighteen To Twenty Week Scottie Update Ultra Sound Date Fundal Height At Umbil Quickening Date Ultra Sound Latest Weeks Gestation Final Scottie Confirmed By Final Scottie Confirmed Date Final Scottie Date Ultra Sound Latest Days Gestation 0 0 Menstrual History Last Menstrual Date Menses Monthly On Bcp Conception Prior Menses Frequency Hcg Plus Date Menarche Onset Age Delivery Information Delivery Date Delivery Type Labor Anesthesia Weeks Gestation Incision Type Labor Labor Length Hrs Delivered By Post Complications Tubal Sterilization Discharge Date Comments 2 Discharge Information Feeding Method Contraceptive Method Maternal HG B and HCT Levels
--- OUTSIDE RECORDS SUMMARY | 2024-07-19 15:23 | XMS_ITS ---
Author Organization [facility]ly [facility] Address [address] [place] [address] Care Team Providers Care Manager Technology Name Role Phone Mohsen Rehman Primary Care Provider Albertina Vasques Unavailable [phone] Chaim Estrada Unavailable [phone] REASON FOR VISIT transfer from [facility] Social History Sex Assigned At : Social History Observation Description Sex Assigned At Female Encounters Encounter Location Date Provider Diagnosis [address] [address] 06/07/2024 Chaim Estrada Plan Of Treatment No Information Progress Notes * Lisa FENG RDOB:1960 (64 yo F)Acc No.[id number]:06/07/2024 UNLOCKED PROGRESS NOTE Progress Notes Patient: Mague GIBBSn Ara Provider: Guillermo Estrada :1960 A ge:64 Y S ex:Female Date:06/07/2024 Address:[address] [place], [place] [phone] Pcp:Mohsen Rehman Subjective: * Chief Complaints: * 1 . transfer from [facility]. * Medical History: Objective: * Vitals: Assessment: Plan: * Treatment: * * Electronic signature of Zhane Estrada , [id number] on 07/19/2024 at 03:23 PM CDT Sign off status: Pending * Provider: Guillermo Estrada Date: 0 06/07/2024 Generated for Petty oropeza/Nathan/Dione on: 0 07/19/2024 03:23 PM CDT
--- OUTSIDE RECORDS SUMMARY | 2024-07-19 15:23 | XMS_ITS | Encounter Summary ---
Author Organization [facility] Address [address] [facility] [place] [address] Phone Care Team Providers Care Ignition Mechanic Name Role Phone Dougie Wilson APRN, CNP Primary Care Pr ovider Encounter Details Date Type Department Care Team (Late st Contact Info) Description 07/05/2024 Results Follow-Up [facility] - Family Medicine [facility] [address] [place] [address] Dougie Wilson APRN, RISSA [address] [address] DRUG SCREEN ORAL FLUID/SALIVA Social History Tobacco Use Types Packs/Day Years Used Date Smoking Tobacco: Some Days Cigarettes 0.3 50.4 Started: 1975 Smokeless Tobacco: Never Alcohol Use Standard Drinks/Week Comments Yes 10 (1 standard drink = 0.6 oz pu re alcohol) [facility] Utilities Answer Date Recorded In the past 12 months has [employer], gas, oil, or water [employer] threatened to shut off services in your home? No 05/25/2024 Social Connection and Isolation Panel Answer Date Recorded In a typical week, how many times do you talk on the phone with family, friends, or neighbors? Three times a week 05/25/2024 How often do you get togethe r with friends or relatives? Once a week 05/25/2024 How often do you attend [facility] or anabaptist services? More than 4 times per year 05/25/2024 Do you belong to any clubs o r organizations such as hoahaoism groups, unions, fraternal or athletic groups, or school groups? Yes 05/25/2024 How often do you attend meet ings of the clubs or organizations you belong to? 1 to 4 times per year 05/25/2024 Are you , , di vorced, , never , or living with a partner? 05/25/2024 AUDIT-C Answer Date Recorded Q1: How often do you have a drink containing alc ohol? 2-4 times a month 05/25/2024 Q2: How many drinks containi ng alcohol do you have on a typical day when you are drinking? 1 or 2 05/25/2024 Q3: How often do you have si x or more drinks on one occasion? Less than monthly 05/25/2024 Overall Financial Resource Strain (CARDIA) Answe r Date Recorded How hard is it for you to pa y for the very basics like food, housing, medical care, and heating? Somewhat hard 05/25/2024 PHQ-2 Answer Date Recorded Total Score - Questions 1-9 0 06/10 [facility] - Occupational Stress Questionnaire Answer Date Recorded Do you feel stress - tense, restless, nervous, or anxious, or unable to sleep at night because your mind is troubled all the time - these days? To some extent 05/25/2024 Exercise Vital Sign Answer Date Recorde d On average, how many days pe r week do you engage in moderate to strenuous exercise (like a brisk walk)? 1 day 05/25/2024 On average, how many minutes do you engage in exercise at this level? 10 min 05/25/2024 Hunger Vital Sign Answer Date Recorded Within the past 12 months, y ou worried that your food would run out before you got the money to buy more. Sometimes true Within the past 12 months, t he food you bought just didn't last and you didn't have money to get more. Often true PRAPARE - Transportation Answer Date Re corded In the past 12 months, has l ack of transportation kept you from medical appointments or from getting medications? No 05/10 In the past 12 months, has l ack of transportation kept you from meetings, work, or from getting things needed for daily living? No 05/25/2024 Housing Stability Vital Sign Answer Sebas e Recorded In the last 12 months, was t here a time when you were not able to pay the mortgage or rent on time? No 05/25/2024 In the past 12 months, how m any times have you moved where you were living? 0 05/25/2024 At any time in the past 12 m [facility], were you homeless or living in a fdc (including now)? No 05/25/2024 Sexually Active Control Partners Comments Not Currently Post-menopausal Comments No Sex and Gender Information Value Date Recorded Sex Assigned at Not on file Legal Sex Female 12:27 AM CDT Gender Identity Not on file Sexual Orientation Not on file documented as of this encounter Plan of Treatment Upcoming Encounters Date Type Department Care Team (Late st Contact Info) Description 07/28/2024 4:15 PM CDT Appointment [facility] MRI [address] [place] [address] Dougie Wilson APRN, RECYCLING OPERATIONS MANAGER #[address] [address] Discharge Disposition: Discharged to home or Selfcare 07/28/2024 5:30 PM CDT Appointment [facility] [address] [place] [address] Dougie Wilson APRN, RECYCLING OPERATIONS MANAGER #[address] [address] Discharge Disposition: Discharged to home or Selfcare 08/04/2024 1:45 PM CDT Physical Therapy [facility] at [address] [phone] Dougie Wilson APRN, RECYCLING OPERATIONS MANAGER #[address] [address] Jennifer Mendez, PT [place] Discharge Disposition: Discharged to home or Selfcare 10/04/2024 9:30 AM CDT Office Visit [facility] - [facility] Medicine [place] [address] [place] [address] Dougie Wilson APRN, RECYCLING OPERATIONS MANAGER #[address] [address] documented as of this encounter Visit Diagnoses Not on filedocumented in this encounter Additional Health Concerns Assessment Noted Time PHQ-9 Depression Total Score: 0 07/02/19 9:29 AM CDT documented as of this encounter Care Teams Ignition Mechanic Relationship Specialty Start Date End Date Dougie Wilson APRN, RECYCLING OPERATIONS MANAGER #[address] [address] PCP - General Advanced Practice Nurse 05/25/24 documented as of this encounter
--- OUTSIDE RECORDS SUMMARY | 2024-07-19 15:23 | XMS_ITS | Encounter Summary ---
Author Organization [facility] Address [address] [facility] [place] [address] Phone Care Team Providers Care Processor Helper Name Role Phone Dougie Wilson APRN, CNP Primary Care Pr ovider Reason for Visit * Reason Onset Date Comments Results 07/07/2024 Encounter Details Date Type Department Care Team (Late st Contact Info) Description 07/07/2024 Telephone [facility] [address] [place] [address] Dougie Wilson APRN, WOOD PREPARATION SUPERVISOR #[address] [address] Results Social History Tobacco Use Types Packs/Day Years Used Date Smoking Tobacco: Some Days Cigarettes 0.3 50.4 Started: 1974 Smokeless Tobacco: Never Alcohol Use Standard Drinks/Week Comments Yes 10 (1 standard drink = 0.6 oz pu re alcohol) [facility] Utilities Answer Date Recorded In the past 12 months has [employer], gas, oil, or water [employer] threatened to shut off services in your home? No 05/25/2024 Social Connection and Isolation Panel Answer Date Recorded In a typical week, how many times do you talk on the phone with family, friends, or neighbors? Three times a week 05/25/2024 How often do you get togethe r with friends or relatives? Once a week 05/25/2024 How often do you attend [facility] or latter day services? More than 4 times per year 05/25/2024 Do you belong to any clubs o r organizations such as temple groups, unions, fraternal or athletic groups, or [...] Total Score - Questions 1-9 0 06/10 [facility] - Occupational Stress [...] any time in the past 12 m [facility], were you homeless or living in a correction (including now)? No 05/25/2024 Sexually Active Control Partners Comments Not Currently Post-menopausal Comments No Sex and Gender Information Value Date Recorded Sex Assigned at Not on file Legal Sex Female 12:27 AM CDT Gender Identity Not on file Sexual Orientation Not on file documented as of this encounter Miscellaneous Notes * Telephone Encounter - Dougie Wilson APRN, CNP - 07/07/2024 3:45 PM CDT Normal * Telephone Encounter - Marimar Shipley RN - 07/07/2024 3:39 PM CDT Situation: Results Background: Patient contacting PCP office.. Caller requesting results from recent testing. Per chart review, patient completed pulmonary function testing on 07/01/2024 date. Assessment: Testing has resulted, but provider has not reviewed. Recommendation: Caller notified that results are awaiting provider review. Encounter routed to provider to notify. documented in this encounter Plan of Treatment Upcoming Encounters Date Type Department Care Team (Late st Contact Info) Description 07/28/2024 4:15 PM CDT Appointment [facility] MRI [address] [place] [address] Dougie Wilson APRN, WOOD PREPARATION SUPERVISOR #[address] [address] Discharge Disposition: Discharged to home or Selfcare 07/28/2024 5:30 PM CDT [facility] [address] [place] [address] Dougie Wilson APRN, WOOD PREPARATION SUPERVISOR #[address] [address] Discharge Disposition: Discharged to home or Selfcare 08/04/2024 1:45 PM CDT [facility] [address] [phone] Dougie Wilson APRN, WOOD PREPARATION SUPERVISOR #[address] [address] Jennifer Mendez, PT [place] Discharge Disposition: Discharged to home or Selfcare 10/04/2024 9:30 AM CDT Office Visit [facility] - Family Medicine - [place] [address] [place] [address] Dougie Wilson APRN, WOOD PREPARATION SUPERVISOR #[address] [address] documented as of this encounter Visit Diagnoses Not on filedocumented in this encounter Additional Health Concerns Assessment Noted Time PHQ-9 Depression Total Score: 0 07/02/19 9:29 AM CDT documented as of this encounter Care Teams Processor Helper Relationship Specialty Start Date End Date Dougie Wilson APRN, WOOD PREPARATION SUPERVISOR #[address] [address] PCP - General Advanced Practice Nurse 05/25/24 documented as of this encounter
--- OUTSIDE RECORDS SUMMARY | 2024-07-19 15:23 | XMS_ITS | Clinical Summary ---
Author Organization [facility] Address [address] [place] [address] Phone Care Team Providers Care [employer] Name Role Phone Dougie Wilson APRN, CNP Primary Care Pr ovider Allergies Active Allergy Reactions Criticality Noted Date Comments Cephalexin Hives 05/26/2015 Penicillins Hives 05/26/2015 Medications GABAPENTIN PO Take 600 mg by mouth 3 times daily. Active levothyroxine (SYNTHROID) 25 MCG Tablet take 1 tablet by mouth daily in the morning on an empty stomach Active fluticasone (FLONASE) 50 MCG/ACT Suspension SHAKE LIQUID AND USE 1 SPRAY IN EACH NOSTRIL DAILY Active cyclobenzaprine (FLEXERIL) 5 MG Tablet TAKE 1 TABLET BY MOUTH UP TO THREE TIMES DAILY NEEDED Active albuterol 108 (90 Base) MCG/ACT Aerosol SolutionIndication s:Tobacco abuse take 2 Puffs by inhalation every 6 hours as needed for Wheezing. 8.5 g 5 05/26/19 25 Active HYDROcodone-acetam inophen (NORCO) 10-325 MG TabletIndications: Cervical spondylosis Take 1 Tablet by mouth 2 times daily as needed for Moderate or more severe pain. 60 Tablet 07/02/19 25 Active sertraline (ZOLOFT) 100 MG Tablet Take 1.5 Tablets by mouth daily. 135 Tablet 3 07/02/19 25 Active rosuvastatin (CRESTOR) 20 MG TabletIndications: Mixed hyperlipidemia Take 1 Tablet by mouth daily. 90 Tablet 3 07/06/19 25 Active sertraline (ZOLOFT) 100 MG Tablet Take 1 Tablet by mouth daily. 025 Discontin ued(Reord er) sertraline (ZOLOFT) 50 MG Tablet 07/19/19 21 025 Discontin ued(Med List Clean Up) HYDROcodone-acetam inophen (NORCO) 10-325 MG TabletIndications: Cervical spondylosis Take 1 Tablet by mouth 2 times daily as needed for Moderate or more severe pain. 60 Tablet 05/26/19 25 025 Discontin ued(Reord er) Active Problems Problem Noted Date Diagnosed Date Mixed hyperlipidemia 07/05/2024 Cervical spondylosis 05/25/2024 Multiple thyroid nodules 05/25/2024 Fibromyalgia 05/26/2015 Arthritis Mitral valve prolapse Spinal stenosis Thyroid disease Encounters Date Type Department Care Team Description 07/07/2024 [facility]phone [facility] [address] [place] [address] Dougie Wilson, ALINA, REGISTERED NURSE CARDIAC Results 07/05/2024 7:47 AM CDT - 07/05/2024 11:59 PM CDT [facility] [address] [place] [address] Provider, Not On File Discharge Disposition: Discharged to home or Selfcare 07/05/2024 7:46 AM CDT [facility] [address] [place] [address] Provider, Not On File Discharge Disposition: Discharged to home or Selfcare 07/05/2024 7:45 AM CDT Hospital Encounter [facility] [address] [place] [address] Provider, Not On File Discharge Disposition: Discharged to home or Selfcare 07/05/2024 Results Follow-Up [facility] [address] [place] [address] Dougie Wilson, ALINA, REGISTERED NURSE CARDIAC DRUG SCREEN ORAL FLUID/SALIVA 07/05/2024 Results Follow-Up [facility] [address] [place] [address] Dougie Wilson APRN, CNP URINE DRUG SCREEN, CMP (COMPREHENSIVE METABOLIC PANEL), LIPID PANEL, Additional followed-up results: 10 07/01/2024 2:47 PM CDT - 07/01/2024 11:59 PM CDT Hospital Encounter [facility] Respiratory Therapy [address] [place] [address] Dougie Wilson APRN, RISSA Discharge Disposition: Discharged to home or Selfcare 07/01/2024 9:15 AM CDT Office Visit [facility] [address] [place] [phone] Dougie Wilson APRN, CNP Cervical spondylosis (Primary Dx); Hypothyroidism, unspecified type; Chronic cough; 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; Therapeutic drug monitoring; Screening for tuberculosis; Screening for HIV (human immunodeficiency virus); Encounter for hepatitis C virus screening test for high risk patient; Screening for colon cancer Discharge Disposition: Discharged to home or Selfcare 07/01/2024 Refill [facility] [address] [place] [address] Dougie Wilson APRN, CNP Medication Refill 06/29/2024 3:44 PM CDT - 06/29/2024 11:59 PM CDT Hospital Encounter [facility] Mammography [address] [place] [address] Dougie Wilson APRN, RISSA Discharge Disposition: Discharged to home or Selfcare 06/29/2024 Travel 06/20/2024 Telephone [facility] [address] [place] [phone] Dougie Wilson APRN, RISSA Records Request 06/20/2024 Telemedicine [facility] [address] [place] [address] Dougie Wilson APRN, CNP ERRONEOUS ENCOUNTER--DISREGARD (Primary Dx) 05/25/2024 3:30 PM CDT [facility] Visit [facility] [address] [place] [phone] Dougie Wilson APRN, CNP Fibromyalgia (Primary Dx); Cervical spondylosis; Thyroid disease; 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; Asymptomatic postmenopausal status; Tobacco abuse; Encounter for screening mammogram for malignant neoplasm of breast; Screening for colon cancer; Encounter for immunization Discharge Disposition: Discharged to home or Selfcare 05/25/2024 Travel from Last 3 Months Immunizations Immunization Administration Dates Next Due Covid-19, Mrna, Lnp-s, Pf, 30 Mcg/0.3 Ml Dose (P jennyzer) 02/17/2020,01/28/2020 Influenza Vaccine, Quadrivalent, PF 12/26/2019 Influenza,Split Virus,Trivalent,Injectable,PF MMR Vaccine 10/12/2015 Pneumococcal conjugate PCV20 , polysaccharide MPU500 conjugate, adjuvant, PF 05/25/2024 TDAP Vaccine 10/12/2015 Family History Medical History Relation Name Comments Congestive Heart Failure Father Dad Diabetes Father Dad Hypertension Father Dad High Cholesterol Mother Father Constance and [employer] Relation Name Status Comments Father Dad Alive Mother Father Alive Social History Tobacco Use Types Packs/Day Years Used Date Smoking Tobacco: Some Days Cigarettes 0.3 50.4 Started: 1974 Smokeless Tobacco: Never Tobacco Cessation:Ready to Q uit: No; Counseling Given: Yes Alcohol Use Standard Drinks/Week Comments Yes 10 (1 standard drink = 0.6 oz pu re alcohol) [facility] Utilities Answer Date Recorded In the past 12 months has [employer], gas, oil, or water [employer] threatened to shut off services in your home? No 05/25/2024 Social Connection and Isolation Panel Answer Date Recorded In a typical week, how many times do you talk on the phone with family, friends, or neighbors? Three times a week 05/25/2024 How often do you get togethe r with friends or relatives? Once a week 05/25/2024 How often do you attend [facility] or denominational services? More than 4 times per year 05/25/2024 Do you belong to any clubs o r organizations such as pentecostalism groups, unions, fraternal or athletic groups, or [...] Total Score - Questions 1-9 0 06/10 [facility] - Occupational [...] medical appointments or from getting medications? No 04/1 07/2024 In the past 12 months, has l [...] any time in the past 12 m [facility], were you homeless or living in a chcf (including now)? No 05/25/2024 Sexually Active Control Partners Comments Not Currently Post-menopausal Comments No Sex and Gender Information Value Date Recorded Sex Assigned at Not on file Legal Sex Female 12:27 AM CDT Gender Identity Not on file Sexual Orientation Not on file Last Filed Vital Signs Vital Sign Reading Time Taken Comments Blood Pressure 110/80 07/01/2024 9:28 AM CDT Pulse 94 07/01/2024 9:28 AM CDT Temperature 36.4 C (97.6 F) 07/01/2024 9:28 AM CDT Respiratory Rate 16 07/01/2024 9:28 AM CDT Oxygen Saturation 96% 07/01/2024 9:28 AM CDT Inhaled Oxygen Concentration - - Weight 62.1 kg (137 lb) 07/01/2024 9:28 AM CDT Height 163.8 cm (5' 4.5) 07/01/2024 9:28 AM CDT Body Mass Index 23.15 07/01/2024 9:28 AM CDT Plan of Treatment Upcoming Encounters Date Type Department Care Team (Late st Contact Info) Description 07/28/2024 4:15 PM CDT [facility]ointment [facility] [address] [place] [address] Dougie Wilson APRN, REGISTERED NURSE CARDIAC [address] [address] Discharge Disposition: Discharged to home or Selfcare 07/28/2024 5:30 PM CDT [facility]ment [facility] [address] [facility] [place] [address] Dougie Wilson, TECHNICAL ADMINISTRATOR, REGISTERED NURSE CARDIAC [address] [address] Discharge Disposition: Discharged to home or Selfcare 08/04/2024 1:45 PM CDT Physical [facility] [address] [address] Dougie Wilson, TECHNICAL ADMINISTRATOR, REGISTERED NURSE CARDIAC [address] [address] Jennifer Mendez, PT [place] Discharge Disposition: Discharged to home or Selfcare 10/04/2024 9:30 AM CDT [facility] [address] [place] [address] Dougie Wilson, TECHNICAL ADMINISTRATOR, REGISTERED NURSE CARDIAC #[address] [address] Health Maintenance Due Date Last Done Comments DEXA Bone Density 1958 Cologuard 05/04/2003 Colonoscopy 05/04/2003 Colorectal Cancer Screening 05/04/2003 Immunochemical Fecal Occult Blood 05/04/2003 Zoster Immunization (1 of 2) 2008 Respiratory Syncytial Virus (RSV) Immunization (Adult) (1 - Risk 60-74 years 1-dose series) 2018 SARS-COV-2 Immunization ( - season) 2023 02/17/2020, 01/28/2020 Influenza Immunization (Seas on Ended) 2024 12/26/2019, 12/18/2015 Mammogram 06/29/2025 06/29/2024 Td Immunization Every 10 Yea rs (Adults With 1 Tdap) 10/11/2025 10/12/2015 DTaP/Tdap/Td Immunization Discontinued 10/12/2015 TdaP Immunization Discontinued 10/12/2015 Pneumococcal Immunization (5 0+ years) Completed 05/25/2024 Pneumococcal Immunization Combined Discontinued 05/25/2024 Hepatitis C Virus (HCV) Screening Completed 07/01/2024, 08/17/2014 Hepatitis B Immunization Aged Out No longer eligible based on patient's age to complete this topic Human Papillomavirus (HPV) Immunization Aged Out No longer eligible based on patient's age to complete this topic Meningococcal Immunization (ACWY) Aged Out No longer eligible based on patient's age to complete this topic Rotavirus Immunization Aged Out No lo nger eligible based on patient's age to complete this topic Procedures Procedure Name Priority Date/Time Associated Diagnosis Comments BARBARA REFERENCE IMAGES FOR IMAGE IMPORT Routine 07/05/2024 7:47 AM CDT BARBARA REFERENCE IMAGES FOR IMAGE IMPORT Routine 07/05/2024 7:46 AM CDT BARBARA REFERENCE IMAGES FOR IMAGE IMPORT Routine 07/05/2024 7:45 AM CDT CBC WITH AUTO DIFFERENTIAL Routine 07/01/2024 11:09 AM CDT Hypothyroidism, unspecified type HIV 1 & 2 ANTIBODY & ANTIGEN SCREEN Routine 07/01/2024 11:09 AM CDT Screening for HIV (human immunodeficiency virus) HEPATITIS C ANTIBODY Routine 07/01/2024 11:09 AM CDT Encounter for hepatitis C virus screening test for high risk patient QUANTIFERON-TB GOLD PLUS Routine 07/01/2024 11:09 AM CDT Screening for tuberculosis URINALYSIS REFLEX IF INDICATED BY ABNORMAL RESULTS Routine 07/01/2024 11:09 AM CDT Hypothyroidism, unspecified type VITAMIN D, 25 HYDROXY TOTAL Routine 07/01/2024 11:09 AM CDT 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 FOLIC ACID (FOLATE) Routine 07/01/2024 1 1:09 AM CDT Hypothyroidism, unspecified type VITAMIN B12 Routine 07/01/2024 11:09 AM CDT Hypothyroidism, unspecified type THYROXINE (T4) FREE Routine 07/01/2024 1 1:09 AM CDT Hypothyroidism, unspecified type THYROID STIMULATING HORMONE (TSH) Routine 07/01/2024 11:09 AM CDT Hypothyroidism, unspecified type COMPLETE BLOOD COUNT (CBC) WITH DIFF Routine 07/01/2024 11:09 AM CDT Hypothyroidism, unspecified type LIPID PANEL Routine 07/01/2024 11:09 AM CDT Hypothyroidism, unspecified type CMP (COMPREHENSIVE METABOLIC PANEL) Routine 07/01/2024 11:09 AM CDT Hypothyroidism, unspecified type URINE DRUG SCREEN Routine 07/01/2024 11: 09 AM CDT Cervical spondylosis Therapeutic drug monitoring COMPLETE PFT W + W/O BRONCHODILATOR Routine 07/01/2024 Chronic cough DRUG SCREEN ORAL FLUID/SALIVA 07/01/2024 12:00 AM CDT [facility] SCREENING BILATERAL DIGITAL W CAD W SINDY Routine 06/29/2024 4:20 PM CDT Encounter for screening mammogram for malignant neoplasm of breast from Last 3 Months Results * [facility] REFERENCE IMAGES FOR IMAGE IMPORT (07/05/2024 7:47 AM CDT) Only the most recent of3 resultswithin the time period is included. us Not On File Provider IMG MAMMO ORDERABLES Final Result * VITAMIN D, 25 HYDROXY TOTAL (07/01/2024 11:09 AM CDT) VITAMIN D, 25 HYDROX 22.1 ng/mL 07/01/2024 12:11 PM CDT [facility] Blood Venipuncture / Unknown 07/01/2024 11:09 AM CDT 07/01/2024 11:16 AM CDT Narrative [facility] - 07/01/2024 12:11 PM CDT Published reference ranges for Vitamin D vary depending on time and place and method of testing, and on patient's age, sex, ethnicity and levels of other measured analytes such as parathormone, calcium and phosphorus. The result should be evaluated in conjunction with clinical findings and suspicions. [employer] Clinical Practice Guidelines: Status Vitamin D levels (ng/mL) Deficient <=20 At risk of inadequacy 21-29 Sufficient 30-100 Centers of Disease Control and Prevention Guidelines: Status Vitamin D levels (ng/mL) Deficient <13 At risk of inadequacy 13-19 Sufficient 20-50 Possibly harmful >50 References: [employer], 2010 Dietary reference intakes for calcium and vitamin D. [place]: The National Academies Press. Becca M, Vicky N, Terrance BURTON, et al., Evaluation, treatment, and prevention of Vitamin D deficiency: an Endocrinology Clinical Practice Guideline. JCEM 2011 96: 7 5171-2276. Gary A, Christopher C, Ibrahima D, et al., Vitamin D Status: [place], , [facility] data brief, no. 59, MD Dylan: National Center for Health Statistics. 2011. us Dougie Wilson APRN, CNP CHEMISTRY ORDERA BLES Final Result Performing Organization Address City/[facility]/ZIP Co de Phone Number [facility] [address] [place] [address] * HIV 1 & 2 ANTIBODY & ANTIGEN SCREEN (07/01/2024 11:09 AM CDT) HIV 1 & 2 ANTIBODY & ANTIGEN SCREEN NON DETECTED NON DETECTED 07/01/2024 10:01 PM CDT [facility] Blood Venipuncture / Unknown 07/01/2024 11:09 AM CDT 07/01/2024 11:16 AM CDT Dougie Wilson APRN, CNP LAB SEND OUTS Final Result Performing Organization Address City/[facility]/ZIP Co de Phone Number [facility] [address] [place] [address], [place] * (ABNORMAL) URINALYSIS REFLEX IF INDICATED BY ABNORMAL RESULTS (07/01/2024 11:09 AM CDT) SPECIFIC GRAVITY 1.010 1.003 - 1.030 07/01/2024 11:23 AM CDT [facility] URINE PH 7.0 5.0 - 9.0 07/01/2024 11:23 AM CDT [facility] WBC ESTERASE Negative Negative 07/01/2024 11:23 AM CDT [facility] NITRITE Negative Negative 07/01/2024 11:23 AM CDT [facility] PROTEIN, RANDOM URINE 15 mg/dL(A) Negative 07/01/2024 11:23 AM CDT [facility] URINE GLUCOSE, QUAL Negative Negative 07/01/2024 11:23 AM CDT [facility] URINE KETONES Negative Negative 07/01/2024 11:23 AM CDT [facility] UROBILINOGEN Normal Normal mg/dL 07/01/2024 11:23 AM CDT [facility] URINE BLOOD Negative Negative memo/ul 07/01/2024 11:23 AM CDT [facility] URINALYSIS COLOR Yellow 07/02/19 11:23 AM CDT [facility] URINALYSIS CLARITY Clear 07/01/2024 11:23 AM CDT [facility] Urine URINE SPECIMEN OBTAINED BY CLEAN CATCH PROCEDURE / Unknown Non-Phlebotomy Collection / Unknown 07/01/2024 11:09 AM CDT 07/01/2024 11:14 AM CDT us Dougie Wilson APRN, REGISTERED NURSE CARDIAC URINE ORDERABLES Final Result [facility] [address] [place] [address] * QUANTIFERON-TB GOLD PLUS (07/01/2024 11:09 AM CDT) NIL CONTROL 0.01 <8.01 IU/mL 07/03/2024 8:28 AM CDT [facility] TB ANTIGEN 1 0.02 <0.35 IU/mL 07/03/2024 8:28 AM CDT [facility] TB ANTIGEN 2 0.01 <0.35 IU/mL 07/03/2024 8:28 AM CDT [facility] MITOGEN CONTROL 9.99 >0.49 IU/mL 07/04/19 8:28 AM CDT [facility] INTEPRETATION TB NEGATIVE NEGATIVE, NEGATIVE (TB antigen response less than 25% of internal negative control value) 07/03/2024 8:28 AM CDT [facility] Comment:No immune response t o Mycobacterium tuberculosis antigens was noted. M. tuberculosis infection unlikely. Blood Venipuncture / Unknown 07/01/2024 11:09 AM CDT 07/01/2024 11:19 AM CDT Narrative [facility] - 07/03/2024 8:28 AM CDT A POSITIVE QUANTIFERON-TB GOLD PLUS RESULT SHOULD NOT BE THE SOLE OR DEFINITIVE BASIS FOR DETERMINING INFECTION WITH M.TUBERCULOSIS. Diagnosing or excluding tuberculosis disease, and assessing the probability of LTBI, requires a combination of epidemiological, historical, medical and diagnostic findings (e.g., acid fast bacilli (AFB) smear and culture, chest xray) that should be taken into account when interpreting QFT-Plus results. Furthermore, the magnitude of the measured gamma interferon level cannot be correlated to stage or degree of infection, level of immune responsiveness, or likelihood for progression to active disease. The Nil control adjusts for background (e.g., elevated levels of circulating gamma interferon or presence of heterophile antibodies). The Mitogen control serves as an internal positive control and verifies each specimen tested can produce a gamma interferon response. Low mitogen may occur with insufficient lymphocytes, reduced lymphocyte activity due to improper specimen handling, filling/mixing of the mitogen tube, or inability of the patient's lymphocytes to generate gamma interferon. Infection with other Mycobacteria, including M. kansasii, M. szulgai, and M. marinum, may cause false positive results. A negative QuantiFERON-TB Gold Plus result does not preclude the possibility of M. tuberculosis infection or tuberculosis disease: false negative results can be due to incorrect blood sample collection/ improper handling of the specimen, stage of infection (e.g., specimen obtained prior to the development of cellular immune response), co-morbid conditions which affect immune function, or other individual immunological factors. The minimum number of lymphocytes required for a reliable test has not been established and may also be variable. Diagnostic testing for Mycobacterium tuberculosis using Interferon Gamma Release Assays should follow applicable published guidelines, including when testing in populations such as children, women, and HIV-infected or otherwise immunocompromised individuals. https://www.cdc.gov/tb/publications/guidelines/testing.htm us Dougie Wilson APRN, CNP IMMUNOLOGY ORDER MALATHI Final Result [facility] [address] [place] [address], * (ABNORMAL) CBC WITH AUTO DIFFERENTIAL (07/01/2024 11:09 AM CDT) WBC 6.35 4.00 - 12.00 10(3)/mcL 07/01/2024 11:25 AM CDT [facility] RBC 4.92 3.80 - 5.30 10(6)/mcL 07/01/2024 11:25 AM CDT [facility] HEMOGLOBIN (HGB) 14.3 12.0 - 15.8 g/dL 07/01/2024 11:25 AM CDT [facility] HEMATOCRIT (HCT) 44.6 36.0 - 47.0 % 07/01/2024 11:25 AM CDT [facility] MCV 90.7 82.0 - 96.0 fL 07/01/2024 11:25 AM CDT [facility] MCH 29.1 26.0 - 34.0 pg 07/01/2024 11:25 AM CDT [facility] MCHC 32.1 31.0 - 36.0 g/dL 07/01/2024 11:25 AM CDT [facility] PLATELET COUNT 319 140 - 440 10(3)/mcL 07/01/2024 11:25 AM CDT [facility] RDW 13.8 11.8 - 15.5 % 07/01/2024 11:25 AM CDT [facility] MPV 9.6(L) 9.7 - 12.4 fL 07/01/2024 11:25 AM CDT [facility] NEUTROPHILS 57.0 47.0 - 73.0 % 07/01/2024 11:25 AM CDT [facility] LYMPHOCYTES 31.2 18.0 - 42.0 % 07/01/2024 11:25 AM CDT [facility] MONOCYTES 7.1 4.0 - 12.0 % 07/01/2024 11:25 AM CDT [facility] EOSINOPHILS 3.6 0.0 - 5.0 % 07/01/2024 11:25 AM CDT [facility] BASOPHILS 1.1(H) 0.0 - 1.0 % 07/01/2024 11:25 AM CDT [facility] ABSOLUTE NEUTROPHILS 3.62 1.60 - 7.70 10(3)/[facility] 07/01/2024 11:25 AM CDT [facility] ABSOLUTE LYMPHOCYTES 1.98 1.30 - 3.20 10(3)/[facility] 07/01/2024 11:25 AM CDT [facility] ABSOLUTE MONOCYTES 0.45 0.20 - 1.00 10(3)/[facility] 07/01/2024 11:25 AM CDT [facility] ABSOLUTE EOSINOPHIL 0.23 0.00 - 0.40 10(3)/[facility] 07/01/2024 11:25 AM CDT [facility] ABSOLUTE BASOPHILS 0.07 0.00 - 0.10 10(3)/[facility] 07/01/2024 11:25 AM CDT [facility] NRBC PER 100 WBC 0 07/02/19 11:25 AM CDT [facility] Blood Venipuncture / Unknown 07/01/2024 11:09 AM CDT 07/01/2024 11:16 AM CDT us Dougie Wilson APRN, RISSA HEMATOLOGY ORDER MALATHI Final Result Performing Organization Address City/[facility]/ZIP Co de Phone Number [facility] [address] [place] [address] * (ABNORMAL) VITAMIN B12 (07/01/2024 11:09 AM CDT) VITAMIN B12 853(H) 213 - 816 pg/mL 07/01/2024 12:11 PM CDT [facility] Blood Venipuncture / Unknown 07/01/2024 11:09 AM CDT 07/01/2024 11:16 AM CDT Dougie Wilson APRN, CNP CHEMISTRY ORDERA BLES Final Result Performing Organization Address [facility] Co de Phone Number [facility] [address] [place] [address] * THYROXINE (T4) FREE (07/01/2024 11:09 AM CDT) T4 FREE 0.7 0.7 - 1.9 ng/dL 07/01/2024 12:01 PM CDT [facility] Blood Venipuncture / Unknown 07/01/2024 11:09 AM CDT 07/01/2024 11:15 AM CDT Dougie Wilson APRN, CNP CHEMISTRY ORDERA BLES Final Result Performing Organization Address City/[facility]/ZIP Co de Phone Number [facility] [address] [place] [address] * THYROID STIMULATING HORMONE (TSH) (07/01/2024 11:09 AM CDT) TSH 2.210 0.300 - 5.000 mIU/L 07/01/2024 12:01 PM CDT [facility] Blood Venipuncture / Unknown 07/01/2024 11:09 AM CDT 07/01/2024 11:15 AM CDT Dougie Wilson APRN, CNP CHEMISTRY ORDERA BLES Final Result [facility] [address] [place] [address] * (ABNORMAL) LIPID PANEL (07/01/2024 11:09 AM CDT) CHOLESTEROL 378(H) <200 mg/dL 07/01/2024 11:56 AM CDT [facility] TRIGLYCERIDES 225(H) <150 mg/dL 07/01/2024 11:56 AM CDT [facility] HDL CHOLESTEROL 80 >40 mg/dL 11:56 AM CDT [facility] LDL 253(H) <130 mg/dL 07/01/2024 11:56 AM CDT [facility] VLDL 45 10 - 50 mg/dL 07/01/2024 11:56 AM CDT [facility] CHOL/HDL RATIO 4.7(H) 0.0 - 4.4 07/01/2024 11:56 AM CDT [facility] NON-HDL CHOLESTEROL 298(H) <130 mg/dL 07/01/2024 11:56 AM CDT [facility] IS THE PATIENT REQUIRED TO BE FASTING? No 07/01/2024 11:56 AM CDT [facility] Blood Venipuncture / Unknown 07/01/2024 11:09 AM CDT 07/01/2024 11:15 AM CDT Dougie Wilson APRN, CNP CHEMISTRY ORDERA BLES Final Result Performing Organization Address City/[facility]/ZIP Co de Phone Number [facility] [address] [place] [address] * HEPATITIS C ANTIBODY (07/01/2024 11:09 AM CDT) Pathologist [facility] hepatitis C antibody 0.14 <1 S/CO 07/01/2024 9:51 PM CDT [facility] Comment: Signal/Cutoff ratio < 0.79 is Nondetected Signal/Cutoff ratio 0.80-0.99 is Grayzone Signal/Cutoff ratio > 0.99 is Detected Supplemental assays are recommended if signal/cutoff ratio is >/=1.00. Signal/cutoff ratio result >/= 5.00 is 97% predictive of positivity for recombinant immunoblot assay (RIBA) and will be reported to the [place] [facility] as required. Blood Venipuncture / Unknown 07/01/2024 11:09 AM CDT 07/01/2024 11:15 AM CDT Dougie Wilson APRN, REGISTERED NURSE CARDIAC CHEMISTRY ORDERA BLES Final Result Performing Organization Address City/[facility]/ZIP Co de Phone Number [facility] [address] [place] [address], * FOLIC ACID (FOLATE) (07/01/2024 11:09 AM CDT) [facility] FOLATE 7.3 7.0 - 31.4 ng/mL 07/01/2024 12:11 PM CDT [facility] IS THE PATIENT REQUIRED TO BE FASTING? No 07/01/2024 12:11 PM CDT [facility] Blood Venipuncture / Unknown 07/01/2024 11:09 AM CDT 07/01/2024 11:16 AM CDT Dougie Wilson APRN, REGISTERED NURSE CARDIAC CHEMISTRY ORDERA BLES Final Result [facility] [address] [place] [address] * (ABNORMAL) CMP (COMPREHENSIVE METABOLIC PANEL) (07/01/2024 11:09 AM CDT) [facility] SODIUM 140 136 - 145 mmol/L 07/01/2024 11:43 AM CDT [facility] POTASSIUM 4.8 3.5 - 5.1 mmol/L 07/01/2024 11:43 AM CDT [facility] CHLORIDE 103 98 - 107 mmol/L 07/01/2024 11:43 AM T [facility] CO2, VENOUS 28 22 - 30 mmol/L 07/01/2024 11:43 AM CDT [facility] ANION GAP 13.8 <18.0 mmol/L 07/01/2024 11:43 AM CDT [facility] GLUCOSE 88 70 - 99 mg/dL 07/01/2024 11:43 AM T [facility] BUN 18 10 - 20 mg/dL 07/01/2024 11:43 AM T [facility] CREATININE, BLOOD 0.83 0.60 - 1.00 mg/dL 07/01/2024 11:43 AM T [facility] BUN/CREATININE RATIO 22(H) 12 - 20 ratio 07/01/2024 11:43 AM T [facility] TOTAL PROTEIN 8.8(H) 6.0 - 8.0 g/dL 07/01/2024 11:43 AM T [facility] ALBUMIN 4.9 3.5 - 5.0 g/dL 07/01/2024 11:[address] [facility] A/G RATIO 1.3 1.0 - 2.2 07/01/2024 11:43 AM T [facility] CALCIUM 10.5 8.7 - 10.5 mg/dL 07/01/2024 11:43 AM T [facility] T BILI 0.4 0.2 - 1.2 mg/dL 07/01/2024 11:43 AM CDT [facility] SGOT (AST) 32 <43 U/L 07/01/2024 11:43 AM T [facility] SGPT (ALT) 37 <56 U/L 07/01/2024 11:43 AM CDT [facility] ALKALINE PHOSPHATASE 114 40 - 150 U/L 07/01/2024 11:43 AM CDT [facility] IS THE PATIENT REQUIRED TO BE FASTING? No 07/01/2024 11:43 AM CDT [facility] GFR, ESTIMATED >60 >=60 07/01/2024 11:43 AM CDT [facility] Comment: Creatinine Clearance is the preferred criteria for selecting drug dose adjustments in renally impaired patients. The GFR is provided as additional pertinent clinical information. GFR is reported in mL/min/1.73 sq m. Calculation based on the Chronic Kidney Disease Epidemiology Collaboration (CKD- EPI) equation refit without adjustment for race. GFR, EST. >60 >=60 025 11:43 AM CDT [facility] GFR, EST. NONAFRICAN >60 >=60 07/01/2024 11:43 AM CDT [facility] Blood Venipuncture / Unknown 07/01/2024 11:09 AM CDT 07/01/2024 11:15 AM CDT us Dougie Wilson APRN, REGISTERED NURSE CARDIAC CHEMISTRY ORDERA BLES Final Result [facility] [address] [place] [address] * URINE DRUG SCREEN (07/01/2024 11:09 AM CDT) UR AMPHETAMINE NON DETECTED NON DETECTED 07/01/2024 11:36 AM CDT [facility] Comment: FOR MEDICAL USE ONLY. CUTOFF CONCENTRATION FOR DETECTED RESULT: AMPHETAMINE: 500 NG/ML UR BENZODIAZEPINES NON DETECTED NON DETECTED 07/01/2024 11:36 AM CDT [facility] Comment: FOR MEDICAL USE ONLY. CUTOFF CONCENTRATION FOR DETECTED RESULT: BENZODIAZAPINE: 200 NG/ML UR COCAINE METABOLITE NON DETECTED NON DETECTED 07/01/2024 11:36 AM CDT [facility] Comment: FOR MEDICAL USE ONLY. CUTOFF CONCENTRATION FOR DETECTED RESULT: COCAINE: 150 NG/ML UR OPIATES NON DETECTED NON DETECTED 07/01/2024 11:36 AM CDT [facility] Comment: FOR MEDICAL USE ONLY. CUTOFF CONCENTRATION FOR DETECTED RESULT: OPIATES: 300 NG/ML UR PHENCYCLIDINE NON DETECTED NON DETECTED 07/01/2024 11:36 AM CDT [facility] Comment: FOR MEDICAL USE ONLY. CUTOFF CONCENTRATION FOR DETECTED RESULT: PCP: 25 NG/ML UR CANNABINOID NON DETECTED NON DETECTED 07/01/2024 11:36 AM CDT [facility] Comment: FOR MEDICAL USE ONLY. CUTOFF CONCENTRATION FOR DETECTED RESULT: THC (MARIJUANA): 50 NG/ML UR BARBITURATE NON DETECTED NON DETECTED 07/01/2024 11:36 AM CDT [facility] Comment: FOR MEDICAL USE ONLY. CUTOFF CONCENTRATION FOR DETECTED RESULT: BARBITUATES: 200 NG/ML UR FENTANYL NON DETECTED NON DETECTED 07/01/2024 11:36 AM CDT [facility] Comment: FOR MEDICAL USE ONLY. CUTOFF CONCENTRATION FOR DETECTED RESULT: FENTANYL: 1.0 NG/ML Urine Non-Phlebotomy Collection / Unknown 07/01/2024 11:09 AM CDT 07/01/2024 11:14 AM CDT Dougie Wilson APRN, CNP URINE ORDERABLES Final Result Performing Organization Address [facility] Co de Phone Number [facility] [address] [place] [address] * DRUG SCREEN ORAL FLUID/SALIVA (07/01/2024 12:00 AM CDT) 07/01/2024 Dougie Wilson APRN, CNP CHEMISTRY ORDERA BLES Final Result SCAN * BARBARA SCREENING BILATERAL DIGITAL W CAD W SINDY (06/29/2024 4:20 PM CDT) Anatomical Region Laterality Modality breast Bilateral Mammography 06/29/2024 3:46 PM CDT Narrative 07/06/2024 8:29 AM CDT - BARBARA SCREENING BILATERAL DIGITAL W CAD W SINDY BILATERAL DIGITAL SCREENING MAMMOGRAM 3D/2D WITH CAD WITH MEDIOLATERAL OBLIQUE CRANIOCAUDAL: 06/29/2024 The study was acquired using digital technology and interpreted from soft copy. Current study was also evaluated with ICAD version 7.2. 2D digital mammographic views, as well as 3D digital tomosynthesis were performed in the CC and MLO projections. CLINICAL: Routine screening. Patient has no complaints. No personal history of cancer. No family history of breast cancer. COMPARISONS: Comparison is made to exams dated: 07/05/2019, 02/25/2016, and 02/15/2011 [facility]. BREAST TISSUE:There are scattered areas of fibroglandular density. FINDINGS: No significant masses, calcifications, or other findings are seen in either breast. There has been no significant interval change. IMPRESSION: NEGATIVE There is no mammographic evidence of malignancy. A 1 year screening mammogram is recommended. A letter will be sent to the patient with these results. The patient will be entered into a reminder system with a target due date of 1 year for her next screening exam. Electronically signed by: Maximino sesay/lucia:07/05/2024 17:08:15 Software Controls Engineer(s): RT Ivonne(Ara)(M), [facility] letter sent: Normal Exam Reading location: [facility] Mammogram BI-RADS: Category 1: Negative Procedure Note Maximino Weinstein MD - 07/06/2024 - BARBARA SCREENING BILATERAL DIGITAL W CAD W SINDY BILATERAL DIGITAL SCREENING MAMMOGRAM 3D/2D WITH CAD WITH MEDIOLATERAL OBLIQUE CRANIOCAUDAL: 06/29/2024 The study was acquired using digital technology and interpreted from soft copy. Current study was also evaluated with ICAD version 7.2. 2D digital mammographic views, as well as 3D digital tomosynthesis were performed in the CC and MLO projections. CLINICAL: Routine screening. Patient has no complaints. No personal history of cancer. No family history of breast cancer. COMPARISONS: Comparison is made to exams dated: 07/05/2019, 02/25/2016, and 02/15/2011 [facility]. BREAST TISSUE:There are scattered areas of fibroglandular density. FINDINGS: No significant masses, calcifications, or other findings are seen in either breast. There has been no significant interval change. IMPRESSION: NEGATIVE There is no mammographic evidence of malignancy. A 1 year screening mammogram is recommended. A letter will be sent to the patient with these results. The patient will be entered into a reminder system with a target due date of 1 year for her next screening exam. Electronically signed by: Maximino sesay/lucia:07/05/2024 17:08:15 Software Controls Engineer(s): RT Ivonne(R)(M), [facility] letter sent: Normal Exam Reading location: [place] Mammogram BI-RADS: Category 1: Negative Dougie Wilson APRN, RISSA IMG MAMMO ORDERA BLES Final Result from Last 3 Months Insurance [facility] Care Teams [employer] Relationship Specialty Start Date End Date Dougie Wilson APRN, REGISTERED NURSE CARDIAC #[address] [address] PCP - General Advanced Practice Nurse 05/25/24
--- OUTSIDE RECORDS SUMMARY | 2024-07-19 15:23 | XMS_ITS ---
Author Organization [facility] Address [address] [place] [address] Care Team Providers Care Lathe Mechanic Name Role Phone Mohsen Rehman Primary Care Provider [phone] Albertina Vasques Unavailable [phone] Chaim Estrada Unavailable [phone] REASON FOR VISIT Transfer from last appt 03/25/2024 Social History Sex Assigned At : Social History Observation Description Sex Assigned At Female Encounters Encounter Location Date Provider Diagnosis [address] [address] 05/24/2024 Chaim Estrada Plan Of Treatment No Information Progress Notes * Lisa FENG RDOB:1960 (64 yo F)Acc No.[id number]:05/24/2024 UNLOCKED PROGRESS NOTE Progress Notes Patient: Lisa GIBBS Provider: Guillermo Estrada :1960 A ge:64 Y S ex:Female Date:05/24/2024 Address:[address] [place], [place] [id number] Pcp:Mohsen Rehman Subjective: * Chief Complaints: * 1 . Transfer from last appt 03/25/2024. * Medical History: Objective: * Vitals: Assessment: Plan: * Treatment: * * Electronic signature of Zhane Estrada , [id number] on 07/19/2024 at 03:23 PM CDT Sign off status: Pending * Provider: Guillermo Estrada Date: 0 05/24/2024 Generated for Petty oropeza/Nathan/Dione on: 0 07/19/2024 03:23 PM CDT
--- OUTSIDE RECORDS SUMMARY | 2024-07-19 15:23 | XMS_ITS | Clinical Summary ---
Author Organization [facility] Address [address] [place] [address] Care Team Providers Care Roofing Foreman Name Role Phone Palma Camargo MD Primary Care Provider [phone] Freddy Jordan MD Unavailable [phone] Source Comments [facility],non-owned Affiliates and Associated Physician Practices is amultiple site organization consisting of ambulatory clinics and hospital sitesin [place], [place], [place] and [place]. This disclosure is being madepursuant to the Care Everywhere program and may not contain all information available regarding this patient. Last updated 17.[facility] Allergies Active Allergy Reactions Criticality Noted Date Comments Contrast-Iodinated Agents For Ct/Other Urticaria Medium 12/11/2016 Cephalexin Urticaria Medium 12/18/2016 Penicillins Urticaria Medium 05/30/2014 Medications * This document contains information received from the source organization and may not represent a complete record from that organization. * Be aware that medications may not be up to date on this document. Alwaysverify current medications with the patient. gabapentin (NEURONTIN) 300 MG capsule Take 600 mg by mouth 3 times daily. Active orphenadrine citrate CR 12hr (NORFLEX) 100 MG tablet Take 100 mg by mouth every 12 hours as needed for Muscle Spasms. Active ALPRAZolam (XANAX) 0.5 MG tablet Take 0.5 mg by mouth 2 times daily. Active HYDROcodone-minal taminophen (NORCO) 10-325 MG tablet Take 1 tablet by mouth 3 times daily Active buPROPion XL 24hr (WELLBUTRIN-XL) 300 MG tablet Take 300 mg by mouth every morning Active Active Problems Problem Noted Date Diagnosed Date Bunion 06/29/2014 Metatarsalgia of both feet 06/29/2014 Hammer toe 06/29/2014 Overlapping toe, acquired 06/29/2014 Family History Medical History Relation Name Comments Hypertension Brother Stroke Brother Diabetes Father Heart Failure Father Hypertension Father Stroke Father Arthritis - Osteo Mother Relation Name Status Comments Brother Father Mother Social History Tobacco Use Types Packs/Day Years Used Date Smoking Tobacco: Former Cigarettes 0.5 30 Smokeless Tobacco: Never Alcohol Use Standard Drinks/Week Comments Yes 0 (1 standard drink = 0.6 oz pur e alcohol) rarely Comments Unknown Sex and Gender Information Value Date Recorded Sex Assigned at Not on file Legal Sex Female 4:23 AM PERSONAL INJURY ATTORNEY Gender Identity Not on file Sexual Orientation Not on file Last Filed Vital Signs Vital Sign Reading Time Taken Comments Blood Pressure 98/57 03/03/2017 9:44 AM PERSONAL INJURY ATTORNEY Pulse 75 03/03/2017 9:44 AM PERSONAL INJURY ATTORNEY Temperature 36.6 C (97.8 F) 08/16/2014 3:35 PM CDT Respiratory Rate 16 03/03/2017 9:44 AM PERSONAL INJURY ATTORNEY Oxygen Saturation 100% 03/03/2017 9:44 AM PERSONAL INJURY ATTORNEY Inhaled Oxygen Concentration - - Weight 75.3 kg (166 lb) 09/06/2014 2:04 PM CDT Height 165.1 cm (5' 5) 09/06/2014 2:04 PM CDT Body Mass Index 27.62 09/06/2014 2:04 PM CDT Plan of Treatment Health Maintenance Due Date Last Done Comments COLOGUARD (AGES 45-75) - COL ON CA SCREENING 1960 COLON MONITORING 1960 COLONOSCOPY - COLON CA SCREENING 1960 CT COLONOGRAPHY - COLON CA SCREENING 1960 Colorectal Cancer Screening 1960 FIT - COLON CA SCREENING 1960 FLEX SIG - COLON CA SCREENING 1960 LIPID TESTING 1960 MAMMOGRAM 1960 DTAP/TDAP/TD VACCINES (1 - Tdap) 1977 PNEUMOCOCCAL VACCINE 50+ (1 of 1 - PCV) 2008 ZOSTER VACCINE (1 of 2) 2008 COVID-19 VACCINE (1 - 2023-2 5 season) 2023 DEPRESSION SCREENING 02/10/2024 INFLUENZA VACCINE (Season Ended) 2024 Respiratory Syncytial Virus (RSV) Vaccine Pt: or over 60 yrs (1 - 1-dose 75+ series) 2033 BONE DENSITY TESTING Completed 07/20/2014 HEPATITIS C SCREENING Completed 08/17/2014 HEPATITIS B VACCINE Aged Out No longe r eligible based on patient's age to complete this topic HIB VACCINE Aged Out No longer eligi ble based on patient's age to complete this topic HPV VACCINE Aged Out No longer eligi ble based on patient's age to complete this topic MENINGOCOCCAL (Group B) VACC INE SHARED DECISION-MAKING Aged Out No longer eligibl e based on patient's age to complete this topic MENINGOCOCCAL GROUPS A/C/Y/W VACCINE Aged Out No longer eligible b ased on patient's age to complete this topic Procedures Procedure Name Priority Date/Time Associated Diagnosis Comments HEPATITIS C ANTIBODY Routine 08/17/2014 11:14 AM CDT DEXA BONE DENSITY 2 SITES Routine 07/20/2014 2:25 PM CDT Disorder of bone and cartilage Post-menopausal from Last 3 Months or Most Recently Relevant to Health Maintenance Results * HEPATITIS C ANTIBODY (08/17/2014 11:14 AM CDT) Hepatitis C Antibody NON-REACTI VE NON-REACT [facility] Signal/Cutoff 0.04 <1.00 [facility] Comment: Test Performed at: [facility] [address] [place] [address] HERSON BYRD DO,MPH Blood specimen (specimen) BLOOD SPECIMEN / Unknown 08/17/2014 11:14 AM CDT 08/17/2014 11:15 AM CDT us Historical Provider LAB - CHEMISTRY ORDERABLE S Edited Result - Final [facility] ([facility]) [id number] * DEXA BONE DENSITY 2 SITES (07/20/2014 2:25 PM CDT) Anatomical Region Laterality Modality Mammography 07/20/2014 2:33 PM CDT Narrative 07/20/2014 2:52 PM CDT BONE MINERAL DENSITY STUDY INDICATION: Postmenopausal ovarian failure - osteoporosis screening. FINDINGS: The average bone mineral density from L1 to L4 is 1.067 g/cm2. T-score is -0.9. Z-score is -0.4. The average bone mineral density of the total left hip is 0.855 g/cm2. T-score is -1.2. Z-score is -0.7. ASSESSMENT: This patient is considered osteopenic according to World Health Organization criteria. The bone density is between 10 and 25% below young normal. Fracture risk is mild. Treatment is advised. WORLD HEALTH ORGANIZATION DEFINITIONS OSTEOPENIA = -1 TO -2.5 SD BELOW T-SCORE. OSTEOPOROSIS = LESS THAN -2.5 SD BELOW T-SCORE. Edited by Elham Mcdonald on 07/20/2014 2:36 PM Procedure Note Jammie Sumner MD - 07/20/2014 BONE MINERAL DENSITY STUDY INDICATION: Postmenopausal ovarian failure - osteoporosis screening. FINDINGS: The average bone mineral density from L1 to L4 is 1.067 g/cm2. T-score is -0.9. Z-score is -0.4. The average bone mineral density of the total left hip is 0.855 g/cm2. T-score is -1.2. Z-score is -0.7. ASSESSMENT: This patient is considered osteopenic according to World Health Organization criteria. The bone density is between 10 and 25% below young normal. Fracture risk is mild. Treatment is advised. WORLD HEALTH ORGANIZATION DEFINITIONS OSTEOPENIA = -1 TO -2.5 SD BELOW T-SCORE. OSTEOPOROSIS = LESS THAN -2.5 SD BELOW T-SCORE. Edited by Elham Mcdonald on 07/20/2014 2:36 PM Vivian Prasad DPM DEXA ORDERABLES Final Result from Last 3 Months or Most Recently Relevant to Health Maintenance Insurance [facility] Care Teams Roofing Foreman Relationship Specialty Start Date End Date Palma Camargo MD [address] [place] [address] [address] [place] [address] PCP - General Family Medicine 06/29/14 Freddy Jordan MD [address] [place] [address] Neurology 08/08/14
== END 2024-07-19 15:25 | disposition home or self-care (01) ==
PROVIDERS: Emergency Provider Nurse Practitioner Family
DX: S92.352A Displaced fracture of fifth metatarsal bone, left foot, initial encounter for closed fracture (principal); W31.89XA Contact with other specified machinery, initial encounter; Y93.A1 Activity, exercise machines primarily for cardiorespiratory conditioning; M79.7 Fibromyalgia; M48.00 Spinal stenosis, site unspecified; F41.9 Anxiety disorder, unspecified; F32.A Depression, unspecified
CPT/HCPCS: 73630; 99213; G0463